=== PATIENT | female | born 1940 | race Caucasian/White ===

== ENCOUNTER 2018-01-03 04:29 | Inpatient (IN) ==
[2018-01-03] MEDS ORDERED: Sod Chloride 0.9% Inj 1,000 ML IV.SIG ONE ×2 (04:40→05:46)
[2018-01-03] MEDS ORDERED: HYDROmorphone PF Inj 0.5 MG/0.5 ML Syringe SQ ONE (04:40)
[2018-01-03] MEDS ORDERED: HYDROmorphone PF Inj 2 MG/ML Vial IV.PUSH ONE ×2 (04:51→05:53)
--- NOTE | 2018-01-03 05:01 | ED ---
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 She denies any fevers, chills, nausea, vomiting or constipation. Her last bowel movement was overnight and was small but normal. She has never had pain like this before. Related Data Home Medications Medication Instructions Recorded Confirmed aspirin 81 mg PO DAILY 01/03/18 01/03/18 atorvastatin 40 mg PO DAILY 01/03/18 01/03/18 bupropion HCl 150 mg PO QAM 01/03/18 01/03/18 fluticasone 1 spray INTRANASAL DAILY 01/03/18 01/03/18 lisinopril-hydrochlorothiazide 1 tab PO DAILY 01/03/18 01/03/18 venlafaxine 75 mg PO DAILY 01/03/18 01/03/18 Allergies Allergy/AdvReac Type Severity Reaction Status Date / Time No Known Allergies Allergy Verified 01/03/18 04:42 Review of Systems ROS: all other systems reviewed are negative [facility] Medical History Medical History Diabetes (Acute) H/O cancer of gall bladder (Acute) High cholesterol (Acute) Hypertension (Acute) Surgical History Surgical History Hx of cholecystectomy (Acute) Social History Social History Substance History: No History of Abuse Second Hand Smoke Exposure: No Smoking Status: Former smoker How Often Do You Have a Drink Containing Alcohol: Monthly or less Recent Travel in [facility] within the Last 8 Weeks: No Recent Out of Country Travel within the Last 8 Weeks: No Immunization History Tetanus Immunization: Unsure Exam Narrative Exam Narrative: GENERAL:Well appearing, no acute distress SKIN: Focused skin assessment warm and dry. HEAD: Atraumatic. Normocephalic. EYES: Pupils equal and round. No injection or drainage. ENT: Moist mucous membranes NECK: Trachea midline. CARDIOVASCULAR: Regular rate and rhythm. No murmur appreciated. RESPIRATORY: Clear to auscultation. Breath sounds equal bilaterally. GASTROINTESTINAL: Abdomen soft, normal bowel sounds, diffusely tender to palpation with guarding in the upper abdomen worse on the right than the left, lower abdomen is nontender MUSCULOSKELETAL: No obvious deformities. NEUROLOGICAL: Awake and alert. No obvious cranial nerve deficits. Moving all extremities. PSYCHIATRIC: Appropriate mood and affect; insight and judgment normal. Course Initial Documented Vital Signs Temperature 98.6 F 01/03/18 04:32 Pulse Rate 76 01/03/18 04:32 Respiratory Rate 17 01/03/18 04:32 Blood Pressure 138/64 01/03/18 04:32 Pulse Oximetry 96 01/03/18 04:32 Last Documented Vital Signs Temperature 98.6 F 01/03/18 04:32 Pulse Rate 85 01/03/18 06:17 Respiratory Rate 16 01/03/18 06:17 Blood Pressure 125/60 01/03/18 06:17 Pulse Oximetry 93 L 01/03/18 06:17 Medical Decision Making [facility] Narrative Medical decision making narrative: This is a 77-year-old female who presents to the emergency department with abdominal pain that started overnight. She is quite tender on exam in the upper abdomen. She was placed on a monitor and an IV was established labs demonstrate a leukocytosis with a neutrophil predominance. Lactic acid is 2.8. Patient has renal insufficiency which is chronic. She was given 2 L of IV fluid and started on Zosyn and cultures were obtained. CT abdomen pelvis was obtained without contrast given CKD and demonstrates inflammation of the small bowel consistent with enteritis. Patient is significantly improved on my reassessment. Infection versus inflammatory versus ischemia continues to be on the differential but given her improved appearance I do not think she requires an emergent surgical evaluation. Labs and exam should be monitored closely and patient will be admitted. Medical Screen Exam Complete: Yes Emergency Medical Condition: Yes Differential Diagnosis Differential Diagnosis: Appendicitis, nephrolithiasis, cancer, infectious gastroenteritis, mesenteric ischemia Lab Data Lab results reviewed: Yes I reviewed the patient's lab results. Lab results narrative: leukocytosis with neutrophil predominance renal insufficiency similar GFR to 2016 lactic 2.8 Result diagrams: 01/03/18 04:55 01/03/18 04:55 Lab Results 01/03/18 01/03/18 01/03/18 Range/Units 04:55 04:55 04:55 WBC 15.4 H (4.0-11.0) th/mm3 RBC 3.78 L (4.00-5.30) mil/mm3 Hgb 11.9 (11.6-15.3) gm/dL Hct 35.6 (35.0-46.0) % MCV 94.3 (80.0-100.0) fL MCH 31.6 (27.0-34.0) pg MCHC 33.5 (32.0-36.0) % RDW 12.8 (11.6-17.2) % Plt Count 215 (150-450) th/mm3 MPV 6.9 L (7.0-11.0) fL Neut % (Auto) 90.1 H (16.0-70.0) % Lymph % (Auto) 6.3 L (9.0-44.0) % [place] % (Auto) 3.2 (0.0-8.0) % Eos % (Auto) 0.1 (0.0-4.0) % Baso % (Auto) 0.3 (0.0-2.0) % Neut # (Auto) 13.9 H (1.8-7.7) th/mm3 Lymph # (Auto) 1.0 (1.0-4.8) th/mm3 [place] # (Auto) 0.5 (0.0-0.9) th/mm3 Eos # (Auto) 0.0 (0.0-0.4) th/mm3 Baso # (Auto) 0.1 (0.0-0.2) th/mm3 WBC Differential . Differential Comment Auto diff final Sodium 142 (136-145) meq/L Potassium 4.1 (3.5-5.1) meq/L Chloride 107 (98-107) meq/L Carbon Dioxide 27.6 (21.0-32.0) meq/L Anion Gap 7 (5-15) meq/L BUN 31 H (7-18) mg/dL Creatinine 1.56 H (0.50-1.00) mg/dL Estimated GFR 32 L (>89) mL/min Random Glucose 147 H (74-106) mg/dL Lactic Acid 2.8 H (0.4-2.0) mmol/L Calcium 8.8 (8.5-10.1) mg/dL Total Bilirubin 0.3 (0.2-1.0) mg/dL AST 23 (15-37) U/L ALT 20 (10-53) U/L Alkaline Phosphatase 112 (45-117) U/L Total Protein 6.7 (6.4-8.2) g/dL Albumin 3.5 (3.4-5.0) g/dL Lipase 113 (73-393) U/L Imaging Data Attestation: I personally reviewed and interpreted this imaging study as follows : Radiologist's impression: Abdomen/Pelvis CT 01/03/18 04:40 CONCLUSION: 1. Abnormal mural thickening and inflammatory or edematous changes of several loops of small bowel in the right lower quadrant. Findings are characteristic of enteritis. Differential diagnosis includes infectious, inflammatory bowel disease or ischemic change. There is a small amount of free fluid in the pelvis. 2. Prior cholecystectomy. Small fat-containing umbilical hernia. Discharge Plan Physicians Team ED Provider: Vianey Chaney Primary Care Provider: Zackery Edwards Rxs /Orders / Referrals /Forms Prescriptions: No Action atorvastatin 40 mg Tablet 40 mg PO DAILY RF: 0 venlafaxine 75 mg Capsule,Extended Release 24hr 75 mg PO DAILY RF: 0 aspirin 81 mg Tablet,Delayed Release (Dr/Ec) 81 mg PO DAILY RF: 0 lisinopril-hydrochlorothiazide 10-12.5 mg Tablet 1 tab PO DAILY RF: 0 fluticasone 50 mcg/actuation [place],Suspension 1 spray INTRANASAL DAILY RF: 0 bupropion HCl 150 mg Tablet Extended Release 24 Hr 150 mg PO QAM RF: 0 Status ED Status: With Doctor
[2018-01-03 05:08] LABS: Baso # (Auto) 0.1 th/mm3 (0.0-0.2); Baso % (Auto) 0.3 % (0.0-2.0); Eos % (Auto) 0.1 % (0.0-4.0); Hematocrit 35.6 % (35.0-46.0); Hemoglobin 11.9 gm/dL (11.6-15.3); Lymph % (Auto) 6.3 % (9.0-44.0); Mean Corpuscular HGB Conc 33.5 % (32.0-36.0); Mean Corpuscular Hemoglobin 31.6 pg (27.0-34.0); Mean Corpuscular Volume 94.3 fL (80.0-100.0); Mean Platelet Volume 6.9 fL (7.0-11.0); Mono # (Auto) 0.5 th/mm3 (0.0-0.9); Mono % (Auto) 3.2 % (0.0-8.0); Neut # (Auto) 13.9 th/mm3 (1.8-7.7); Neut % (Auto) 90.1 % (16.0-70.0); Platelet Count 215 th/mm3 (150-450); Red Blood Count 3.78 mil/mm3 (4.00-5.30); Red Cell Distribution Width 12.8 % (11.6-17.2); White Blood Count 15.4 th/mm3 (4.0-11.0)
[2018-01-03 05:27] LABS: Albumin 3.5 g/dL (3.4-5.0); Anion Gap 7 meq/L (5-15); Aspartate Aminotransferase 23 U/L (15-37); Blood Urea Nitrogen 31 mg/dL (7-18); Calcium 8.8 mg/dL (8.5-10.1); Carbon Dioxide 27.6 meq/L (21.0-32.0); Chloride 107 meq/L (98-107); Glomerular Filtration Rate 32 mL/min (>89); Glucose,Random 147 mg/dL (74-106); Lipase 113 U/L (73-393); Potassium 4.1 meq/L (3.5-5.1); Sodium 142 meq/L (136-145)
[2018-01-03 05:28] LABS: Alanine Aminotransferase 20 U/L (10-53)
[2018-01-03 05:30] LABS: Alkaline Phosphatase 112 U/L (45-117); Total Protein 6.7 g/dL (6.4-8.2)
[2018-01-03] MEDS ORDERED: Piperacil/Tazo 3.375 GM Premix 50 ML IV.SIG ONE (05:45)
--- NOTE | 2018-01-03 06:38 | CT ---
EXAM DATE: 01/03/2018 4:40 AM EDT AGE/SEX: 77 years / Female INDICATIONS: Right upper quadrant pain and elevated white count. CLINICAL DATA: This is the patient's initial encounter. Patient reports that signs and symptoms have been present for 1 day and indicates a pain score of 8/10. MEDICAL/SURGICAL HISTORY: Hypertension. Diabetes. Carcinoma of gallbladder Cholecystectomy. L iver resection RADIATION DOSE: 25.9 CTDI (mGy) COMPARISON: POI, CT ABDOMEN AND PELVIS W/O CONTRAST, 02/20/2016. . TECHNIQUE: Multiple contiguous axial images were obtained through the abdomen. Images were obtained using multiple row detector helical technique. Using automated exposure control and adjustment of the mA and/or kV according to patient size, radiation dose was kept as low as reasonably achievable to o btain optimal diagnostic quality images. DICOM format image data is available electronically for rev iew and comparison. FINDINGS: Lung bases are clear. No acute findings in the liver, spleen, adrenals, kidneys or pancreas. Exophyti c cyst lower pole left kidney is stable. Previous cholecystectomy. There is mural thickening of several loops of small bowel in the right lower quadrant with surroundin g inflammatory or edematous changes in the mesentery. Findings most characteristic of an enteritis. There is a small fat-containing umbilical hernia. Small amount of free fluid present in pelvis. No fr ee air. CONCLUSION: 1. Abnormal mural thickening and inflammatory or edematous changes of several loops of small bowel i n the right lower quadrant. Findings are characteristic of enteritis. Differential diagnosis includes infectious, inflammatory bowel disease or ischemic change. There is a small amount of free fluid in the pelvis. 2. Prior cholecystectomy. Small fat-containing umbilical hernia. Electronically signed by: Trung Giang MD 01/03/2018 6:37 AM EDT
[2018-01-03] MEDS ORDERED: Sodium Chloride 0.9% 2 ML Flush PRN IV.FLUSH (10:05)
--- NOTE | 2018-01-03 10:49 | P.HPIM ---
History of Present Illness Service: Hospitalist Primary Care Physician: Zackery Edwards MD, PhD Chief Complaint: abdominal pain History of Present Illness: Patient is a pleasant 77-year-old female with history of hypertension, type 2 diabetes, and adenocarcinoma of the gallbladder. Gallbladder was resected by Dr. Zak Padilla in 2010. Patient was in her normal state of good health until approximately 1-2 days prior to presentation. Patient developed abdominal pain. Patient's appetite diminished. Patient has had nothing solid by mouth for the last 24 hours, but she is continued to drink liquids. Patient describes the pain as severe. Patient denies nausea or vomiting. Patient denies diarrhea or constipation. Patient states that she had a small bowel movement yesterday. Patient denies bright red blood per rectum or dark tarry stools. Patient denies prior episodes of same type of abdominal pain. 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 Osito Kruse - cholecystectomy by Dr. Zak Padilla -Resection of the liver at the gallbladder bed was performed August 2010 -Gallbladder fossa was negative for carcinoma -Patient was recommended to have chemotherapy by oncology, but declined chemotherapy -Patient's sister from complications of poor placement for chemotherapy which makes patient anxious -Patient no longer following with oncology, last seen February 2016 5) hyperlipidemia 6) morbid obesity 7) depression 8) PAD, mild 9) aortic atherosclerosis 10) history of right breast subcutaneous lesion 11) GERD PSH: 1) colonoscopy 05/2010 2) cholecystectomy 3) resection of liver at the gallbladder bed, August 2010. Negative for carcinoma 4) liver biopsy 5) EGD 6) dilation and curettage 7) ERCP with sphincterectomy, stent insertion (?) 8) tonsillectomy and adenoidectomy 1944 9) Bariatric Surgery FHX: Non-contributory SHX: , retired -Former smoker. Patient quit over 15 years ago. However, prior to that she smoked on and off since teenager. -No alcohol use -No illicit street drugs Allergies: No known drug allergies MED: 1) artificial tears 2) aspirin 81 mg p.o. daily 3) Lipitor 40 mg p.o. every afternoon 4) bupropion XL 150 mg p.o. daily ---> still taking? 5) Flonase 1 spray in each nostril twice a day 6) ibuprofen as needed 7) lisinopril/hydrochlorothiazide 10/12.5 mg 1 tablet daily 8 multivitamin 1 tablet daily 9) naproxen 250 mg as needed 10) Effexor ER 75 mg 1 tablet daily --> still taking ? 11) vitamin D 1000 units 2 tablets daily - Diagnosis (1) Abdominal pain, RUQ (2) DM2 (diabetes mellitus, type 2) (3) HTN (hypertension) (4) Depression Inpatient Certification: I certify that the inpatient services were ordered in accordance with Medicare regulations governing the order. This includes certification that hospital inpatient services are reasonable and necessary and in the case of services not specified as inpatient-only under 42 CFR 419.22(n), that they are appropriately provided as inpatient services in accordance to with the 2-midnight benchmark under 43 CFR 412.3(e) Estimated Total Length of Stay (Days): 3 Plans for Post Hospital Care: Not yet determined Review of Systems Constitutional: Denies anorexia, Denies body ache(s), Denies chills, Denies fever(s), Denies night sweats, Denies poor appetite, Denies weight gain, Denies weight loss Eyes: Denies blind spots, Denies blurry vision, Denies change in vision, Denies double vision, Denies discharge, Denies loss of peripheral vision, Denies loss of vision, Denies other visual disturbances, Denies pain Ears, Nose, Mouth, and Throat: Denies bleeding gums, Denies difficulty swallowing, Denies dizziness, Denies headache(s), Denies hearing loss, Denies pain with swallowing, Denies poor balance, Denies ringing in the ears, Denies sore throat, Denies throat swelling, Denies tongue swelling Cardiovascular: Denies chest pain, Denies excessive sweating, Denies fainting, Denies fast heart rate, Denies generalized swelling, Denies irregular heart rhythm, Denies leg swelling, Denies lightheadedness, Denies slow heart rate Respiratory: Denies cough, Denies shortness of breath, Denies snoring, Denies wheezing Gastrointestinal: Reports abdominal pain, Denies belching, Denies black, tarry stools, Denies bright, red blood in stools, Denies change in bowel habits, Denies change in stools, Denies coffee ground vomit, Denies constipation, Denies cramping, Denies difficulty swallowing, Denies heartburn, Denies incontinent of stools, Denies loose stools, Denies nausea, Denies pain with swallowing, Denies vomiting, Denies vomiting blood Comments: see HPI Genitourinary: Denies abnormal vaginal bleeding, Denies blood in urine, Denies difficulty starting urination, Denies difficulty urinating, Denies frequent nighttime urination, Denies painful urination, Denies pelvic pain, Denies side pain, Denies urinary incontinence, Denies urinary hesitancy, Denies urinary urgency Musculoskeletal: Denies abnormal walking, Denies back pain, Denies body aches, Denies decreased muscle mass, Denies joint pain, Denies joint swelling, Denies muscle weakness, Denies neck pain, Denies numbness, Denies stiffness, Denies tingling Skin/Breast: Denies bleeding lesions, Denies change in skin color, Denies changing lesions, Denies itching, Denies lesions, Denies new lesions, Denies non -healing lesions, Denies redness, Denies sensitivity to light, Denies rash, Denies skin pain, Denies skin swelling, Denies skin ulcer, Denies sores, Denies unusual bruising, Denies wounds, Denies yellowing of the skin Neurologic: Denies abnormal hearing, Denies abnormal movements, Denies abnormal speech, Denies abnormal walking, Denies behavioral changes, Denies burning sensations, Denies confusion, Denies dizziness, Denies fainting, Denies frequent falls, Denies headache(s), Denies lack of coordination, Denies localized weakness, Denies loss of vision, Denies memory loss, Denies numbness, Denies other visual disturbances, Denies radiating pain, Denies restless legs, Denies convulsions, Denies seizure-like activity, Denies sensory deficit, Denies tingling/numbness/burning sensations, Denies tremor(s), Denies unsteadiness, Denies weakness Psychiatric: Denies abnormal sleep pattern, Denies anxiety, Denies behavioral changes, Denies change in appetite, Denies confusion, Denies depression, Denies difficulty concentrating, Denies hearing things others do not hear, Denies irritability, Denies lack of enjoyment, Denies memory loss, Denies mood swings, Denies panic attacks, Denies paranoia, Denies seeing things others do not see, Denies thoughts of hurting/killing others, Denies thoughts of hurting/killing yourself Endocrine: Denies cold intolerance, Denies excessive sweating, Denies fatigue, Denies flushing, Denies heat intolerance, Denies increased hunger, Denies increased thirst, Denies increased urination, Denies rapid, pounding, or irregular heartbeat Hematologic/Lymphatic: Denies easy bleeding, Denies easy bruising, Denies enlarged lymph nodes Allergic/Immunologic: Denies hives, Denies lip swelling, Denies throat swelling , Denies wheezing PMFSH - History History Provided By: Patient - Medical History Medical History: Medical History (Last Reviewed 01/08/18 @ 08:22 by Audi Wei) Diabetes H/O cancer of gall bladder High cholesterol Hypertension - Surgical History Surgical History: Surgical History (Last Reviewed 01/08/18 @ 08:23 by Audi Wei) Hx of cholecystectomy - Tobacco History Second Hand Smoke Exposure: No Tobacco Use In Past 30 Days: No Smoking Status: Former smoker - Alcohol History How Often Do You Have a Drink Containing Alcohol: Monthly or less - Substance Use History Substance History: No History of Abuse - Travel History Recent Travel in the [place] Within the Last 8 Weeks: No Recent Travel Out of the Country Within the Last 8 Weeks: No - Immunization History Tetanus Immunization: Unsure Medications and Allergies Active Medications: Active Medications Al Hydroxide/Mg Hydroxide (Milk Of Magnvalerie Liq) 30 ml PO Q12H PRN PRN Reason: Mild Constipation Sodium Chloride (Ns Inj) 1,000 mls @ 100 mls/hr IV.CONT .Q10H LORET[place] Piperacillin/Tazobactam/Dextrose (Zosyn 3.375 Gm Premix) 50 mls @ 100 mls/hr IV.SIG Q6H [place] Ondansetron HCl (Zofran Inj) 4 mg IV.PUSH Q6H PRN PRN Reason: NAUSEA OR VOMITING Senna/Docusate Sodium (Treva-Colace) 1 tab PO BID [place] Sodium Chloride (Ns Flush) 2 ml IV.FLUSH BID [place] Sodium Chloride (Ns Flush) 2 ml IV.FLUSH PRN PRN PRN Reason: FLUSH AFTER USING IV ACCESS Allergies Allergy/AdvReac Type Severity Reaction Status Date / Time No Known Allergies Allergy Verified 01/03/18 04:42 Home Medications Medication Instructions Recorded Confirmed Type aspirin 81 mg PO DAILY 01/03/18 01/03/18 History atorvastatin 40 mg PO DAILY 01/03/18 01/03/18 History bupropion HCl 150 mg PO QAM 01/03/18 01/03/18 History fluticasone 1 spray INTRANASAL DAILY 01/03/18 01/03/18 History lisinopril-hydrochlorothiazide 1 tab PO DAILY 01/03/18 01/03/18 History venlafaxine 75 mg PO DAILY 01/03/18 01/03/18 History Exam Vital signs: 01/03/18 06:59 01/03/18 10:15 Temperature Pulse Rate 104 H Respiratory Rate 14 16 Blood Pressure 135/63 Pulse Oximetry 94 L Narrative: GENERAL: This is a well-nourished, well-developed patient, in no apparent distress. CARDIOVASCULAR: Regular rate and rhythm without murmurs, gallops, or rubs. RESPIRATORY: Clear to auscultation. Breath sounds equal bilaterally. No wheezes , rales, or rhonchi. GASTROINTESTINAL: +BS x 4, no g/r/r, pt is diffusely tender on palpation, pt is most tender at RUQ MUSCULOSKELETAL: Extremities without clubbing, cyanosis, or edema. NEURO: Alert & Oriented x4 to person, place, time, situation. Moves all ext x4 Results - Labs CBC & Chem 7: 01/08/18 08:36 01/06/18 05:19 Labs: Liver Function 01/03/18 Range/Units 04:55 Total Bilirubin 0.3 (0.2-1.0) mg/dL AST 23 (15-37) U/L ALT 20 (10-53) U/L Alkaline Phosphatase 112 (45-117) U/L Albumin 3.5 (3.4-5.0) g/dL - Imaging Abdomen/Pelvis CT 01/03/18 04:40 1. Abnormal mural thickening and inflammatory or edematous changes of several loops of small bowel in the right lower quadrant. Findings are characteristic of enteritis. Differential diagnosis includes infectious, inflammatory bowel disease or ischemic change. There is a small amount of free fluid in the pelvis. 2. Prior cholecystectomy. Small fat-containing umbilical hernia. Caprini VTE Risk Assessment Caprini VTE Risk Assessment: Moderate/High Risk (score >= 2) Caprini Risk Assessment Model: Point Value = 1 Point Value = 2 Point Value = 3 Point Value = 5 Age 41-60 Minor surgery BMI > 25 kg/m2 Swollen legs Varicose veins or History of unexplained or recurrent spontaneous Oral contraceptives or hormone replacement Sepsis (< 1 month) Serious lung disease, including pneumonia (< 1 month) Abnormal pulmonary function Acute myocardial infarction Congestive heart failure (< 1 month) History of inflammatory bowel disease Medical patient at bed rest Age 61-74 Arthroscopic surgery Major open surgery (> 45 min) Laparoscopic surgery (> 45 min) Malignancy Confined to bed (> 72 hours) Immobilizing plaster cast Central venous access Age >= 75 History of VTE Family history of VTE Factor V Leiden Prothrombin [id number] Lupus anticoagulant Anticardiolipin antibodies Elevated serum homocysteine Heparin-induced thrombocytopenia Other congenital or acquired thrombophilia Stroke (< 1 month) Elective arthroplasty Hip, pelvis, or leg fracture Acute spinal cord injury (< 1 month) Prophylaxis Regimen: Total Risk Factor Score Risk Level Prophylaxis Regimen 0-1 Low Early ambulation 2 Moderate Order ONE of the following: *Sequential Compression Device (SCD) *Heparin 5000 units SQ BID 3-4 Higher Order ONE of the following medications: *Heparin 5000 units SQ TID *Enoxaparin/Lovenox 40 mg SQ daily (WT < 150 kg, CrCl > 30 mL/min) *Enoxaparin/Lovenox 30 mg SQ daily (WT < 150 kg, CrCl > 10-29 mL/min) *Enoxaparin/Lovenox 30 mg SQ BID (WT < 150 kg, CrCl > 30 mL/min) AND/OR *Sequential Compression Device (SCD) 5 or more Highest Order ONE of the following medications: *Heparin 5000 units SQ TID (Preferred with Epidurals) *Enoxaparin/Lovenox 40 mg SQ daily (WT < 150 kg, CrCl > 30 mL/min) *Enoxaparin/Lovenox 30 mg SQ daily (WT < 150 kg, CrCl > 10-29 mL/min) *Enoxaparin/Lovenox 30 mg SQ BID (WT < 150 kg, CrCl > 30 mL/min) AND *Sequential Compression Device (SCD) Assessment and Plan - Assessment (1) Abdominal pain, RUQ Code(s): R10.11 - Right upper quadrant pain Status: Acute Plan: Patient is a pleasant 77-year-old female with history of hypertension, type 2 diabetes, and adenocarcinoma of the gallbladder. 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 Osito Kruse - cholecystectomy by Dr. Zak Padilla - Resection of the liver at the gallbladder bed was performed August 2010 - Gallbladder fossa was negative for carcinoma - Patient was recommended to have chemotherapy by oncology, but declined chemotherapy - Patient's sister from complications of poor placement for chemotherapy which makes patient anxious - Patient no longer following with oncology, last seen February 2016 Patient was in her normal state of good health until approximately 1-2 days prior to presentation. Patient developed abdominal pain. Patient's appetite diminished. Patient has had nothing solid by mouth for the last 24 hours, but she is continued to drink liquids. Patient describes the pain as severe. Patient denies nausea or vomiting. Patient denies diarrhea or constipation. Patient states that she had a small bowel movement yesterday. Patient denies bright red blood per rectum or dark tarry stools. Patient denies prior episodes of same type of abdominal pain. Abdomen/Pelvis CT 01/03/18 04:40 1. Abnormal mural thickening and inflammatory or edematous changes of several loops of small bowel in the right lower quadrant. Findings are characteristic of enteritis. Differential diagnosis includes infectious, inflammatory bowel disease or ischemic change. There is a small amount of free fluid in the pelvis. 2. Prior cholecystectomy. Small fat-containing umbilical hernia. - WBC 15.4 (01/03) - lactic acid 2.8, 2.7 (01/03) - no fever - IVFs - continue zosyn (01/03 - present) - Pt with marked abdominal pain. - STAT consult placed to General Surgery. Case d/w Dr. Rodriges - joey thomas. HTN - continue home medications Depression - continue home medications. (2) DM2 (diabetes mellitus, type 2) Code(s): E11.9 - Type 2 diabetes mellitus without complications Status: Acute (3) HTN (hypertension) Code(s): I10 - Essential (primary) hypertension Status: Acute (4) Depression Code(s): F32.9 - Major depressive disorder, single episode, unspecified Status : Acute
[2018-01-03] MEDS ORDERED: Dextrose 50% in Water 50 ML Vial IV.PUSH PRN (11:40)
[2018-01-03] MEDS ORDERED: Acetaminophen 500 MG Tablet PO PRN (12:00)
--- NOTE | 2018-01-03 12:30 | XR ---
EXAM DATE: 01/03/2018 12:00 PM EDT AGE/SEX: 77 years / Female INDICATIONS: Patient presents with fever and shortness of breath. CLINICAL DATA: This is the patient's initial encounter. Patient reports that signs and symptoms have been present for 1 day and indicates a pain score of 0/10. MEDICAL/SURGICAL HISTORY: . Hypertension. Diabetes. Carcinoma of gallbladder Cholecystectomy. Liver resection . COMPARISON: No prior exams available for comparison. FINDINGS: A single AP view of the chest demonstrates the lungs to be symmetrically aerated without evidence of mass, infiltrate or effusion. The cardiomediastinal contours are unremarkable. Osseous structures a re intact. CONCLUSION: 1. No acute cardiopulmonary disease. Electronically signed by: Indra Lind MD 01/03/2018 12:28 PM EDT
--- NOTE | 2018-01-03 13:00 | P.CONGS ---
[facility] Gen Surgery Consult Note Consult date: 01/03/18 Narrative: 77 yo F h/o gallbladder ca s/p limited liver resection in 2010 developed acute onset right lower abdominal pain last night 6 pm, which persisted and worsened. No diarrhea, nausea, or vomiting. She feels somewhat improved after pain meds. Had 2L bolus IVF in ED. WBC noted to be [address] a/p shows thickened distal small bowel. Images were reviewed by me and discussed with radiology- appears to be pneumatosis of a portion of small bowel with inflammatory changes in mesentery. No IV contrast was given due to borderline renal function. Review of Systems All other systems reviewed negative except as stated in [facility] - History History Provided By: Patient - Medical History Medical History: Medical History (Last Reviewed 01/03/18 @ 05:03 by Vianey Chaney MD) Diabetes H/O cancer of gall bladder High cholesterol Hypertension - Surgical History Surgical History: Surgical History (Last Updated 01/03/18 @ 05:04 by Vianey Chaney MD) Hx of cholecystectomy - Tobacco History Second Hand Smoke Exposure: No Tobacco Use In Past 30 Days: No Smoking Status: Former smoker - Alcohol History How Often Do You Have a Drink Containing Alcohol: Monthly or less - Substance Use History Substance History: No History of Abuse - Travel History Recent Travel in the [place] Within the Last 8 Weeks: No Recent Travel Out of the Country Within the Last 8 Weeks: No - Immunization History Tetanus Immunization: Unsure Medications and Allergies Active Medications: Active Medications Acetaminophen (Tylenol) 500 mg PO Q6H PRN PRN Reason: FEVER > 100.4 F Al Hydroxide/Mg Hydroxide (Milk Of Magnvalerie Liq) 30 ml PO Q12H PRN PRN Reason: Mild Constipation Aspirin (Ecotrin) 81 mg PO DAILY [facility] Atorvastatin Calcium (Lipitor) 40 mg PO DAILY [facility] Bupropion HCl (Wellbutrin Sr) 150 mg PO DAILY [facility] Dextrose (D50w Vial) 50 ml IV.PUSH UNSCH PRN PRN Reason: PER HYPOGLYCEMIA PROTOCOL Enalaprilat (Vasotec Inj) 1.25 mg IV.PUSH Q6H PRN PRN Reason: sbp above 160 Fluticasone Propionate (Flonase Nasal [place]) 1 spray EACH NARE DAILY [facility] Glucagon (Glucagon Inj) 1 mg OTHER PRN PRN PRN Reason: for Hypoglycemia Protocol Hydrochlorothiazide (Hydrodiuril) 12.5 mg PO DAILY [facility] Sodium Chloride (Ns Inj) 1,000 mls @ 100 mls/hr IV.CONT .Q10H [facility] Piperacillin/Tazobactam/Dextrose (Zosyn 3.375 Gm Premix) 50 mls @ 100 mls/hr IV.SIG Q6H [facility] Insulin Human Regular (Novolin R Correctional Sugar Inj) 0 units SQ ACHS [facility]; Protocol Lisinopril (Prinivil) 10 mg PO DAILY [facility] Miscellaneous (Pill Splitter) 1 each OTHER UNSCH PRN PRN Reason: SEE LABEL COMMENTS Ondansetron HCl (Zofran Inj) 4 mg IV.PUSH Q6H PRN PRN Reason: NAUSEA OR VOMITING Senna/Docusate Sodium (Treva-Colace) 1 tab PO BID [facility] Sodium Chloride (Ns Flush) 2 ml IV.FLUSH BID [facility] Sodium Chloride (Ns Flush) 2 ml IV.FLUSH PRN PRN PRN Reason: FLUSH AFTER USING IV ACCESS Venlafaxine HCl (Effexor Xr) 75 mg PO DAILY [facility] Allergies Allergy/AdvReac Type Severity Reaction Status Date / Time No Known Allergies Allergy Verified 01/03/18 04:42 Home Medications Medication Instructions Recorded Confirmed Type aspirin 81 mg PO DAILY 01/03/18 01/03/18 History atorvastatin 40 mg PO DAILY 01/03/18 01/03/18 History bupropion HCl 150 mg PO QAM 01/03/18 01/03/18 History fluticasone 1 spray INTRANASAL DAILY 01/03/18 01/03/18 History lisinopril-hydrochlorothiazide 1 tab PO DAILY 01/03/18 01/03/18 History venlafaxine 75 mg PO DAILY 01/03/18 01/03/18 History Exam Vital signs: Vital Signs 01/03/18 04:32 01/03/18 06:01 01/03/18 06:17 Temperature 98.6 F Pulse Rate 76 85 Respiratory Rate 17 17 16 Blood Pressure 138/64 125/60 Pulse Oximetry 96 93 L 01/03/18 06:59 01/03/18 10:15 Temperature Pulse Rate 104 H Respiratory Rate 14 16 Blood Pressure 135/63 Pulse Oximetry 94 L Intake & Output 01/02/18 01/03/18 01/03/18 18:59 06:59 18:59 Intake Total 1050 / 1050 1000 / 1000 Balance 1050 / 1050 1000 / 1000 Weight 124.738 kg Intake: IV 1050 / 1050 1000 / 1000 Zosyn 3.375 GM Premix 50 ML @ 50 / 50 100 mls/hr IV.SIG ONCE ONE Rx#: [id number] NS Inj 1,000 ML @ Wide Open IV. 1000 / 1000 1000 / 1000 SIG BOLUS ONE Rx#:[id number] Other: Date of Last Bowel Movement 01/03/18 Narrative: GENERAL: Awake and alert. No acute distress. Cooperative. HEAD: Normocephalic. Atraumatic. EYES: Pupils equal round and reactive to light bilaterally. No scleral icterus. ENT: Moist oral mucosa. NECK: Trachea midline. CHEST: Nonlabored breathing. No respiratory distress. CARDIOVASCULAR: Regular rate and rhythm. ABDOMEN: Obese. Moderate diffuse ttp. ? rebound in right lower abdomen. EXTREMITIES: No cyanosis or edema. SKIN: Warm, dry, nonjaundiced. Results - Labs 01/03/18 04:55 01/03/18 04:55 Laboratory Results - last 24 hr 01/03/18 01/03/18 01/03/18 04:55 04:55 04:55 WBC 15.4 H RBC 3.78 L Hgb 11.9 Hct 35.6 MCV 94.3 MCH 31.6 MCHC 33.5 RDW 12.8 Plt Count 215 MPV 6.9 L Neut % (Auto) 90.1 H Lymph % (Auto) 6.3 L [place] % (Auto) 3.2 Eos % (Auto) 0.1 Baso % (Auto) 0.3 Neut # (Auto) 13.9 H Lymph # (Auto) 1.0 [place] # (Auto) 0.5 Eos # (Auto) 0.0 Baso # (Auto) 0.1 WBC Differential . Differential Comment Auto diff final Sodium 142 Potassium 4.1 Chloride 107 Carbon Dioxide 27.6 Anion Gap 7 BUN 31 H Creatinine 1.56 H Estimated GFR 32 L Random Glucose 147 H Lactic Acid 2.8 H Calcium 8.8 Total Bilirubin 0.3 AST 23 ALT 20 Alkaline Phosphatase 112 Total Protein 6.7 Albumin 3.5 Lipase 113 01/03/18 07:12 WBC RBC Hgb Hct MCV MCH MCHC RDW Plt Count MPV Neut % (Auto) Lymph % (Auto) [place] % (Auto) Eos % (Auto) Baso % (Auto) Neut # (Auto) Lymph # (Auto) [place] # (Auto) Eos # (Auto) Baso # (Auto) WBC Differential Differential Comment Sodium Potassium Chloride Carbon Dioxide Anion Gap BUN Creatinine Estimated GFR Random Glucose Lactic Acid 2.7 H Calcium Total Bilirubin AST ALT Alkaline Phosphatase Total Protein Albumin Lipase - Imaging Imaging: ITS Impressions Abdomen/Pelvis CT 01/03/18 04:40 CONCLUSION: 1. Abnormal mural thickening and inflammatory or edematous changes of several loops of small bowel in the right lower quadrant. Findings are characteristic of enteritis. Differential diagnosis includes infectious, inflammatory bowel disease or ischemic change. There is a small amount of free fluid in the pelvis. 2. Prior cholecystectomy. Small fat-containing umbilical hernia. Chest X-Ray 01/03/18 12:00 CONCLUSION: 1. No acute cardiopulmonary disease. CT scan - abdomen: report reviewed, image reviewed CT scan - pelvis: report reviewed, image reviewed Assessment and Plan - Assessment (1) Abdominal pain Code(s): R10.9 - Unspecified abdominal pain Status: Acute (2) Pneumatosis intestinalis Code(s): K63.89 - Other specified diseases of intestine Status: Acute - Plan 77-year-old female with acute onset right-sided abdominal pain with severe tenderness, leukocytosis, CT concerning for enteritis vs ischemic bowel. Will order CT a/p despite borderline renal function as we need to make an operative decision and this may help to see if she is perfusing her bowel. She received two boluses in ED earlier today so will continue maintenance IV only at this time.
[2018-01-03] MEDS: buPROPion 150 MG 12 HR Tablet PO SCH (13:07)
[2018-01-03] MEDS: Piperacil/Tazo 3.375 GM Premix 50 ML IV.SIG SCH ×3 (13:57→20:00)
[2018-01-03] MEDS: Sod Chloride 0.9% Inj 1,000 ML IV.CONT SCH ×2 (13:57→20:01)
[2018-01-03] MEDS: Insulin NovoLIN Regular Correctional Sugar Inj SQ SCH ×3 (13:58→21:03)
--- NOTE | 2018-01-03 15:07 | CT ---
EXAM DATE: 01/03/2018 1:56 PM EDT AGE/SEX: 77 years / Female INDICATIONS: Bilateral lower abdomen pain. CLINICAL DATA: This is the patient's initial encounter. Patient reports that signs and symptoms have been present for 1 day and indicates a pain score of 7/10. MEDICAL/SURGICAL HISTORY: Diabetes. Hypertension. gallbladder cancer Cholecystectomy. ORAL CONTRAST: No oral contrast ingested. RADIATION DOSE: 29.32 CTDI (mGy) ; Patient body habitus [place] [facility] [place]/03/2018. . TECHNIQUE: Multiple contiguous axial images were obtained through the abdomen and pelvis following b olus infusion of 50 ml Visipaque 320 (iodixanol) nonionic water-soluble contrast as a single exam d ose. No oral contrast ingested. Using automated exposure control and adjustment of the mA and/or kV according to patient size, radiation dose was kept as low as reasonably achievable to obtain optimal diagnostic quality images. DICOM format image data is available electronically for review and compar zoila. FINDINGS: LOWER LUNGS: The visualized lower lungs are clear. LIVER: Diffusely homogeneous density without intrahepatic ductal dilatation or volume loss. Trace am ount of ascites with fluid primarily along the hepatic margin and in the deep pelvis. SPLEEN: Homogeneous density without enlargement. PANCREAS: Grossly unremarkable. KIDNEYS: Kidneys are symmetrical in size without evidence for radiopaque renal calculi or hydronephr osis. 4.4 cm cyst in the inferior pole the left kidney. No significant contour deforming renal abnorm ality. ADRENAL GLANDS: Unremarkable. AORTA: Heather-aneurysmal. BOWEL/MESENTERY: Persistent diffuse pleural thickening and surrounding inflammatory change involving multiple distal ileal loops in the right lower quadrant. No definitive evidence for pneumatosis. No free air. No drainable focal fluid collections. ABDOMINAL WALL: Small fat-containing anterior abdominal wall hernia. BLADDER: Contours are smooth. REPRODUCTIVE: Grossly unremarkable. BONY STRUCTURES: Multilevel advanced degenerative spondylosis of the lumbar spine. CONCLUSION: 1. Persistent inflammatory change and bowel wall thickening involving several distal ileal loops in the right lower quadrant consistent with moderately severe enteritis. There has been interval increas e in trace ascites in the abdomen with no fluid collections or evidence for bowel perforation. No sherine dence for proximal small bowel obstruction at this time. 2. Remainder of exam is unchanged. Electronically signed by: Indra Lind MD 01/03/2018 3:06 PM EDT
[2018-01-03] MEDS ORDERED: Lidocaine PF 1% Inj 5 ML Syringe OTHER ONE (16:41)
[2018-01-03] MEDS ORDERED: Phenylephrine/NS 1000 MCG/10ML Syringe IV.PUSH ONE (16:41)
[2018-01-03] MEDS ORDERED: Bupivacaine/Epinephrine Inj 0.25% 50 ML Vial ONE (16:56)
[2018-01-03] MEDS ORDERED: Sodium Bicarbonate 8.4% Inj 50 MEQ/50 ML Syringe ONE ×2 (17:15→17:17)
[2018-01-03 18:05] LABS: ABG Base Excess -1.5 mmol/L (-2-2); ABG PCO2 41 mmHg (38-42); ABG PO2 153 mmHG (61-120)
[2018-01-03] MEDS ORDERED: Sugammadex Inj 200 MG/2 ML Vial IV.PUSH ONE (19:07)
[2018-01-03] MEDS ORDERED: HYDROmorphone PF Inj 2 MG/ML Vial IV.PUSH PRN (19:20)
--- NOTE | 2018-01-03 19:30 | P.OP ---
- Preoperative Diagnosis (1) Abdominal pain (2) Pneumatosis intestinalis - Postoperative Diagnosis (1) Small bowel ischemia Date of procedure: 01/03/18 Procedure: Diagnostic laparoscopy Exploratory laparotomy, small bowel resection Appendectomy Anesthesia: ROSALES Surgeon: Gianluca Rodriges MD Pizza Chef: Rosemary GALAVIZ Estimated blood loss (mL): 50 IV fluids (mL): 2,700 Urine output (mL): 150 Pathology: other (ileum; appendix) Operation and Findings: Operative findings: The patient had obvious ischemia patchy in the terminal ileum with some thickening of the adjacent small bowel. The remainder of the small bowel was normal-appearing. The cecum was mildly inflamed but viable. There is no obvious cause for the ischemia. There was no obstruction. Procedure in detail: The patient was taken to the operating room and placed in the supine position. General endotracheal anesthesia was induced and the abdomen was prepped and draped in usual sterile fashion. A surgical timeout was performed to verify correct patient procedure and site. Local anesthetic was injected in the skin and subcutaneous tissue in the left upper abdomen and a 5 mm incision made. A 5 mm Optiview trocar with the laparoscope in place was inserted in the abdominal cavity which was insufflated to 15 mmHg which the patient tolerated well. On evaluation there was noted to be some exudate in the right abdomen with associated concerning bowel. 3 more 5 mm ports were placed in the left abdomen to facilitate exploration. The omentum was adherent with exudative material to the small bowel and the omentum was retracted cephalad. Small bowel loops were stuck and these were gently bluntly. The very distal terminal ileum was possibly viable for about 10 cm and then there was an area approximately 30-40 cm thickened inflamed and with patchy obvious ischemia. The proximal small bowel was normal-appearing. The cecum was mildly thickened but viable as well as the remainder of the colon. It was unclear if she would need an ileocecectomy or small bowel resection alone and therefore I mobilized the acsending colon with the harmonic scalpel. At this point a transverse incision was made in the right upper abdomen sharply and dissection carried through subcutaneous tissue and the right rectus muscle with electrocautery. The involved terminal ileum and cecum was brought up into the incision after placement of an Adin wound retractor. A mesenteric defect was created at healthy small bowel proximal to the diseased bowel. The small bowel was then divided with a 75 mm blue load SAMEER stapler. On closer inspection now that we had opened the very distal terminal ileum was just mildly thickened but viable appearing. Therefore the distal small bowel transection was made in the distal terminal ileum. The mesentery was divided with the harmonic scalpel. A [id number] functional end-to-end anastomosis was performed using the SAMEER 75 mm blue load. The mesentery was closed with 3-0 silk [id number] sutures. 3-0 silk was placed at the end of the staple line. The abdomen was irrigated with 2 L of warm normal saline. The anastomosis was placed back in the abdominal cavity. NG tube was placed and confirmed in the stomach. The anterior and posterior rectus fascia was then closed in 2 layers with #1 PDS suture. The wound was irrigated and skin closed with wide skin stapler. The port sites were closed with wide skin stapler. A elena dressing was placed the right upper quadrant incision.
[2018-01-03] MEDS ORDERED: fentaNYL Citrate Inj 100 MCG/2 ML Ampul ONE ×2 (20:00)
[2018-01-03] MEDS ORDERED: Morphine Inj 4 MG/ML Vial ONE (20:01)
--- NOTE | 2018-01-03 20:18 | XR ---
EXAM DATE: 01/03/2018 12:00 AM EDT AGE/SEX: 77 years / Female INDICATIONS: Shortness of breath. CLINICAL DATA: This is the patient's subsequent encounter. Patient reports that signs and symptoms h ave been present for 2 days and indicates a pain score of Nonresponsive. MEDICAL/SURGICAL HISTORY: . Diabetes. Hypertension. gallbladder cancer Cholecystectomy. [place] [facility] [place]. . FINDINGS: Single AP view the chest. Nasogastric tube is in place the tip below the [id number] of the radiogr aph. Lung volumes are low. Mild patchy opacity bilaterally at the lung bases. No evidence of pleural effusion or pneumothorax. Cardiomediastinal silhouette unchanged. CONCLUSION: 1. Nasogastric tube in place with tip below the [id number] of the radiograph. 2. Mild patchy bilateral lower lung zone opacity indicating atelectasis versus mild consolidation. Electronically signed by: Elvis Stiles MD 01/03/2018 8:16 PM EDT
[2018-01-03] MEDS: Sodium Chloride 0.9% 2 ML Flush BID IV.FLUSH SCH (21:03)
[2018-01-03] MEDS: Senna/Docusate Sodium 8.6/50 MG Tablet PO SCH (21:03)
[2018-01-04] MEDS: Piperacil/Tazo 3.375 GM Premix 50 ML IV.SIG SCH ×5 (01:02→23:57)
[2018-01-04 05:40] LABS: Baso % (Auto) 0.1 % (0.0-2.0); Hematocrit 32.2 % (35.0-46.0); Hemoglobin 10.6 gm/dL (11.6-15.3); Lymph # (Auto) 0.5 th/mm3 (1.0-4.8); Lymph % (Auto) 1.9 % (9.0-44.0); Mean Corpuscular HGB Conc 33.1 % (32.0-36.0); Mean Corpuscular Hemoglobin 31.4 pg (27.0-34.0); Mean Corpuscular Volume 94.8 fL (80.0-100.0); Mean Platelet Volume 6.9 fL (7.0-11.0); Mono % (Auto) 3.5 % (0.0-8.0); Neut # (Auto) 26.6 th/mm3 (1.8-7.7); Neut % (Auto) 94.5 % (16.0-70.0); Platelet Count 186 th/mm3 (150-450); Red Cell Distribution Width 13.4 % (11.6-17.2); White Blood Count 28.1 th/mm3 (4.0-11.0)
[2018-01-04 06:11] LABS: Alanine Aminotransferase 19 U/L (10-53); Albumin 2.6 g/dL (3.4-5.0); Alkaline Phosphatase 56 U/L (45-117); Anion Gap 9 meq/L (5-15); Aspartate Aminotransferase 22 U/L (15-37); Blood Urea Nitrogen 42 mg/dL (7-18); Calcium 7.6 mg/dL (8.5-10.1); Chloride 108 meq/L (98-107); Glomerular Filtration Rate 26 mL/min (>89); Glucose,Random 159 mg/dL (74-106); Potassium 3.9 meq/L (3.5-5.1); Sodium 142 meq/L (136-145); Total Protein 5.7 g/dL (6.4-8.2)
[2018-01-04] MEDS: Sod Chloride 0.9% Inj 1,000 ML IV.CONT SCH ×2 (06:41→17:34)
[2018-01-04 07:30] LABS: Lymphocytes 1 % (9-44); Monocytes 2 % (0-8); Platelet Estimate Normal (Normal); Platelet Morphology Normal (Normal); RBC Morphology Normal (Normal)
[2018-01-04] MEDS: Insulin NovoLIN Regular Correctional Sugar Inj SQ SCH ×4 (09:21→21:13)
[2018-01-04] MEDS: hydroCHLOROthiazide 25 MG Tablet PO SCH (10:22)
[2018-01-04] MEDS: Venlafaxine XR 75 MG Capsule PO SCH ×2 (10:22→12:42)
[2018-01-04] MEDS: Lisinopril 10 MG Tablet PO SCH ×2 (10:23→12:46)
[2018-01-04] MEDS: Sodium Chloride 0.9% 2 ML Flush BID IV.FLUSH SCH ×2 (10:23→21:03)
[2018-01-04] MEDS: Senna/Docusate Sodium 8.6/50 MG Tablet PO SCH ×4 (10:23→21:14)
[2018-01-04] MEDS: buPROPion 150 MG 12 HR Tablet PO SCH ×2 (10:24→12:46)
--- NOTE | 2018-01-04 12:16 | P.PNGS ---
Subjective Patient reports: feels better, pain is less, no flatus, afebrile (The patient is anxious to eat, however she understands that for now she is NPO, except for ice chips and popsicles.) Physical Exam Vital signs: Vital Signs 01/03/18 16:00 01/03/18 19:29 01/03/18 19:45 Temperature 98.3 F 98.2 F Pulse Rate 91 H 88 89 Respiratory Rate 22 15 22 Blood Pressure 119/57 L 121/57 L 116/52 L Pulse Oximetry 95 97 98 01/03/18 20:00 01/03/18 20:15 01/03/18 20:30 Temperature 98.6 F Pulse Rate 89 88 87 Respiratory Rate 22 22 19 Blood Pressure 118/56 L 105/53 L Pulse Oximetry 97 97 95 01/03/18 21:00 01/03/18 22:00 01/03/18 22:15 Temperature Pulse Rate 86 89 87 Respiratory Rate 21 18 Blood Pressure 107/56 L 107/58 L Pulse Oximetry 95 94 L 95 01/03/18 23:05 01/04/18 00:00 01/04/18 02:00 Temperature 98.8 F Pulse Rate 89 88 89 Respiratory Rate 18 Blood Pressure 104/59 L Pulse Oximetry 95 01/04/18 04:00 01/04/18 06:00 01/04/18 08:00 Temperature 98.3 F 98.3 F Pulse Rate 93 H 84 84 Respiratory Rate 22 25 H Blood Pressure 104/55 L 111/55 L Pulse Oximetry 97 99 01/04/18 10:00 Temperature Pulse Rate 86 Respiratory Rate Blood Pressure Pulse Oximetry Intake & Output 01/03/18 01/04/18 01/04/18 18:59 06:59 18:59 Intake Total 1150 / 1150 5150 / 5150 150 / 150 Output Total 770 / 770 Balance 1150 / 1150 4380 / 4380 150 / 150 Weight 132.5 kg Intake: IV 1150 / 1150 2450 / 2450 150 / 150 NS Inj 1,000 ML @ 100 mls/hr IV 1999 .CONT .Q10H [facility] Rx#:[id number] Ofirmev Inj 1,000 mg In 100 ml 200 / 200 100 / 100 @ 400 mls/hr IV.SIG Q6H [facility] Rx# :[id number] Zosyn 3.375 GM Premix 50 ML @ 50 / 50 50 / 50 50 / 50 100 mls/hr IV.SIG Q6H [facility] Rx#: [id number] NS Inj 1,000 ML @ Wide Open IV. 1000 / 1000 SIG BOLUS ONE Rx#:[id number] Flagyl 500 MG Inj 100 ML @ 100 100 / 100 200 / 200 mls/hr IV.SIG Q6H [facility] Rx#: [id number] Anesthesia Amount 2700 / 2700 Output: Estimated Blood Loss 50 / 50 Urine Amount (Catheter) 620 / 620 16fr 620 / 620 Gastric Drainage 100 / 100 Left Nare Nasogastric Tube 100 / 100 Other: Date of Last Bowel Movement 01/03/18 01/03/18 01/03/18 Weight On Admission 132.5 kg - Routine Abdominal Exam Comments: Her abdominal exam is benign with postoperative tenderness. She has no guarding or rebound. The remainder of her physical exam is benign as well. - Urinary Catheter Management 16fr Cath placed during this visit: yes Reason for continuing: Hourly intake/output Insertion date: 01/03/18 Insertion time: 17:11 Results - Labs 01/04/18 04:10 01/04/18 04:10 Laboratory Results - last 24 hr 01/03/18 01/03/18 01/03/18 12:48 14:16 16:10 WBC RBC Hgb Hct MCV MCH MCHC RDW Plt Count MPV Prelim Diff (Auto) Neut % (Auto) Lymph % (Auto) [place] % (Auto) Eos % (Auto) Baso % (Auto) Neut # (Auto) Lymph # (Auto) [place] # (Auto) Eos # (Auto) Baso # (Auto) WBC Differential Seg Neuts % (Manual) Band Neuts % (Manual) Lymphocytes % (Manual) Monocytes % (Manual) Abs Neuts (Manual) Differential Comment Platelet Estimate Platelet Morphology RBC Morphology Puncture Site Patient Temperature O2 Saturation ABG pH ABG pCO2 ABG pO2 ABG HCO3 ABG O2 Content ABG Base Excess ABG Methemoglobin Hemoglobin Carboxyhemoglobin O2 Delivery Device Critical Value Sodium Potassium Chloride Carbon Dioxide Anion Gap BUN Creatinine Estimated GFR POC Glucose 150 H 130 H Random Glucose Lactic Acid 4.1 H* Calcium Total Bilirubin AST ALT Alkaline Phosphatase Total Protein Albumin Nasal Screen MRSA (PCR) 01/03/18 01/03/18 01/03/18 17:55 19:48 22:20 WBC RBC Hgb Hct MCV MCH MCHC RDW Plt Count MPV Prelim Diff (Auto) Neut % (Auto) Lymph % (Auto) [place] % (Auto) Eos % (Auto) Baso % (Auto) Neut # (Auto) Lymph # (Auto) [place] # (Auto) Eos # (Auto) Baso # (Auto) WBC Differential Seg Neuts % (Manual) Band Neuts % (Manual) Lymphocytes % (Manual) Monocytes % (Manual) Abs Neuts (Manual) Differential Comment Platelet Estimate Platelet Morphology RBC Morphology Puncture Site Art line Patient Temperature 98.6 O2 Saturation 96 ABG pH 7.37 L ABG pCO2 41 ABG pO2 153 H ABG HCO3 23 ABG O2 Content 15.5 ABG Base Excess -1.5 ABG Methemoglobin 1.7 Hemoglobin 11.3 L Carboxyhemoglobin 1.4 O2 Delivery Device Ventilator Critical Value No Sodium Potassium Chloride Carbon Dioxide Anion Gap BUN Creatinine Estimated GFR POC Glucose 125 H Random Glucose Lactic Acid Calcium Total Bilirubin AST ALT Alkaline Phosphatase Total Protein Albumin Nasal Screen MRSA (PCR) Not detected 01/04/18 01/04/18 01/04/18 04:10 04:10 04:40 WBC 28.1 H D RBC 3.40 L Hgb 10.6 L Hct 32.2 L MCV 94.8 MCH 31.4 MCHC 33.1 RDW 13.4 Plt Count 186 MPV 6.9 L Prelim Diff (Auto) Slide review pending Neut % (Auto) 94.5 H Lymph % (Auto) 1.9 L [place] % (Auto) 3.5 Eos % (Auto) 0.0 Baso % (Auto) 0.1 Neut # (Auto) 26.6 H Lymph # (Auto) 0.5 L [place] # (Auto) 1.0 H Eos # (Auto) 0.0 Baso # (Auto) 0.0 WBC Differential Manual diff final Seg Neuts % (Manual) 88 H Band Neuts % (Manual) 9 H Lymphocytes % (Manual) 1 L Monocytes % (Manual) 2 Abs Neuts (Manual) 27.3 H Differential Comment . Platelet Estimate Normal Platelet Morphology Normal RBC Morphology Normal Puncture Site Patient Temperature O2 Saturation ABG pH ABG pCO2 ABG pO2 ABG HCO3 ABG O2 Content ABG Base Excess ABG Methemoglobin Hemoglobin Carboxyhemoglobin O2 Delivery Device Critical Value Sodium 142 Potassium 3.9 Chloride 108 H Carbon Dioxide 25.0 Anion Gap 9 BUN 42 H Creatinine 1.89 H Estimated GFR 26 L POC Glucose Random Glucose 159 H Lactic Acid 2.1 H Calcium 7.6 L D Total Bilirubin 0.7 AST 22 ALT 19 Alkaline Phosphatase 56 Total Protein 5.7 L D Albumin 2.6 L D Nasal Screen MRSA (PCR) 01/04/18 08:05 WBC RBC Hgb Hct MCV MCH MCHC RDW Plt Count MPV Prelim Diff (Auto) Neut % (Auto) Lymph % (Auto) [place] % (Auto) Eos % (Auto) Baso % (Auto) Neut # (Auto) Lymph # (Auto) [place] # (Auto) Eos # (Auto) Baso # (Auto) WBC Differential Seg Neuts % (Manual) Band Neuts % (Manual) Lymphocytes % (Manual) Monocytes % (Manual) Abs Neuts (Manual) Differential Comment Platelet Estimate Platelet Morphology RBC Morphology Puncture Site Patient Temperature O2 Saturation ABG pH ABG pCO2 ABG pO2 ABG HCO3 ABG O2 Content ABG Base Excess ABG Methemoglobin Hemoglobin Carboxyhemoglobin O2 Delivery Device Critical Value Sodium Potassium Chloride Carbon Dioxide Anion Gap BUN Creatinine Estimated GFR POC Glucose 133 H Random Glucose Lactic Acid Calcium Total Bilirubin AST ALT Alkaline Phosphatase Total Protein Albumin Nasal Screen MRSA (PCR) - Imaging Imaging: ITS Impressions Chest X-Ray 01/03/18 12:00 CONCLUSION: 1. No acute cardiopulmonary disease. Abdomen/Pelvis CT 01/03/18 12:47 CONCLUSION: 1. Persistent inflammatory change and bowel wall thickening involving several distal ileal loops in the right lower quadrant consistent with moderately severe enteritis. There has been interval increase in trace ascites in the abdomen with no fluid collections or evidence for bowel perforation. No evidence for proximal small bowel obstruction at this time. 2. Remainder of exam is unchanged. Assessment and Plan - Assessment (1) Abdominal pain Code(s): R10.9 - Unspecified abdominal pain Status: Acute (2) Pneumatosis intestinalis Code(s): K63.89 - Other specified diseases of intestine Status: Acute - Plan The patient is postop day #1 status post resection of small bowel which was ischemic. She is doing very well and having no major. The Valle catheter will be removed and the nasogastric tube will be left in place for now. I placed her on popsicles and ice chips. She understands that she should be out of bed several times a day walking in the [place].
--- NOTE | 2018-01-04 18:13 | P.PNIM ---
Subjective Interval history: Pain is controlled. No flatus yet. Physical Exam Vital signs: 01/04/18 12:00 01/04/18 14:00 Temperature 98.3 F Pulse Rate 90 89 Respiratory Rate 25 H Blood Pressure 107/54 L Pulse Oximetry 100 Narrative: GENERAL: Awake and alert. No acute distress. Cooperative. HEAD: Normocephalic. Atraumatic. EYES: Pupils equal round and reactive to light bilaterally. No scleral icterus. ENT: Moist oral mucosa. NECK: Trachea midline. CHEST: Nonlabored breathing. No respiratory distress. CARDIOVASCULAR: Regular rate and rhythm. ABDOMEN: Obese. no bowel sounds. EXTREMITIES: No cyanosis or edema. SKIN: Warm, dry, nonjaundiced. - Urinary Catheter Management 16fr Cath placed during this visit: yes Reason for continuing: Hourly intake/output Insertion date: 01/03/18 Insertion time: 17:11 Results - Labs CBC & Chem 7: 01/08/18 08:36 01/06/18 05:19 01/03/18 05:50 Blood - Peripheral Aerobic Blood Culture - Preliminary No growth in 1 day 01/03/18 05:50 Blood - Peripheral Anaerobic Blood Culture - Preliminary No growth in 1 day 01/03/18 05:50 Blood - Peripheral Aerobic Blood Culture - Preliminary No growth in 1 day 01/03/18 05:50 Blood - Peripheral Anaerobic Blood Culture - Preliminary No growth in 1 day - Imaging chest X-Ray 01/03/18 00:00 1. Nasogastric tube in place with tip below the [id number] of the radiograph. 2. Mild patchy bilateral lower lung zone opacity indicating atelectasis versus mild consolidation. Assessment and Plan - Assessment (1) Abdominal pain, RUQ Code(s): R10.11 - Right upper quadrant pain Status: Acute Plan: Patient is a pleasant 77-year-old female with history of hypertension, type 2 diabetes, and adenocarcinoma of the gallbladder. 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 Osito Kruse - cholecystectomy by Dr. Zak Padilla - Resection of the liver at the gallbladder bed was performed August 2010 - Gallbladder fossa was negative for carcinoma - Patient was recommended to have chemotherapy by oncology, but declined chemotherapy - Patient's sister from complications of poor placement for chemotherapy which makes patient anxious - Patient no longer following with oncology, last seen February 2016 Patient was in her normal state of good health until approximately 1-2 days prior to presentation. Patient developed abdominal pain. Patient's appetite diminished. Patient has had nothing solid by mouth for the last 24 hours, but she is continued to drink liquids. Patient describes the pain as severe. Patient denies nausea or vomiting. Patient denies diarrhea or constipation. Patient states that she had a small bowel movement yesterday. Patient denies bright red blood per rectum or dark tarry stools. Patient denies prior episodes of same type of abdominal pain. Abdomen/Pelvis CT 01/03/18 04:40 1. Abnormal mural thickening and inflammatory or edematous changes of several loops of small bowel in the right lower quadrant. Findings are characteristic of enteritis. Differential diagnosis includes infectious, inflammatory bowel disease or ischemic change. There is a small amount of free fluid in the pelvis. 2. Prior cholecystectomy. Small fat-containing umbilical hernia. - WBC 15.4 (01/03), 28.1 (01/04) - lactic acid 2.8, 2.7, 4.1 (01/03), then 2.1 (01/04) - no fever today - 01/03/18 Pt underwent diagnstic laparoscopy with finding of small bowel ischemia exploratory laparotomy with small bowel resection and appendectomy - continue to monitor in Surgical ICU - Case d/w Dr. Padilla (01/04/18) - IVFs - continue zosyn (01/03 - present) - flagyl (01/03 - present) - Diet: per surgery, ice chips & popsicles - dilaudid prn HTN - continue home medications Depression - continue home medications. (2) DM2 (diabetes mellitus, type 2) Code(s): E11.9 - Type 2 diabetes mellitus without complications Status: Acute (3) HTN (hypertension) Code(s): I10 - Essential (primary) hypertension Status: Acute (4) Depression Code(s): F32.9 - Major depressive disorder, single episode, unspecified Status : Acute
[2018-01-05] MEDS: Sod Chloride 0.9% Inj 1,000 ML IV.CONT SCH ×2 (05:58→13:05)
[2018-01-05] MEDS: Piperacil/Tazo 3.375 GM Premix 50 ML IV.SIG SCH ×3 (06:00→17:10)
[2018-01-05 06:31] LABS: Baso % (Auto) 0.1 % (0.0-2.0); Eos % (Auto) 0.1 % (0.0-4.0); Hematocrit 29.6 % (35.0-46.0); Hemoglobin 9.7 gm/dL (11.6-15.3); Lymph # (Auto) 0.9 th/mm3 (1.0-4.8); Lymph % (Auto) 4.3 % (9.0-44.0); Mean Corpuscular HGB Conc 32.8 % (32.0-36.0); Mean Corpuscular Hemoglobin 31.6 pg (27.0-34.0); Mean Corpuscular Volume 96.6 fL (80.0-100.0); Mean Platelet Volume 7.1 fL (7.0-11.0); Mono # (Auto) 0.6 th/mm3 (0.0-0.9); Mono % (Auto) 2.9 % (0.0-8.0); Neut # (Auto) 19.2 th/mm3 (1.8-7.7); Neut % (Auto) 92.6 % (16.0-70.0); Platelet Count 162 th/mm3 (150-450); Red Blood Count 3.07 mil/mm3 (4.00-5.30); Red Cell Distribution Width 13.6 % (11.6-17.2); White Blood Count 20.7 th/mm3 (4.0-11.0)
[2018-01-05 07:10] LABS: Alkaline Phosphatase 72 U/L (45-117); Total Protein 6.1 g/dL (6.4-8.2)
[2018-01-05 07:15] LABS: Alanine Aminotransferase 20 U/L (10-53); Albumin 2.5 g/dL (3.4-5.0); Anion Gap 8 meq/L (5-15); Aspartate Aminotransferase 33 U/L (15-37); Blood Urea Nitrogen 38 mg/dL (7-18); Calcium 8.1 mg/dL (8.5-10.1); Carbon Dioxide 26.1 meq/L (21.0-32.0); Chloride 110 meq/L (98-107); Glomerular Filtration Rate 34 mL/min (>89); Glucose,Random 94 mg/dL (74-106); Potassium 3.9 meq/L (3.5-5.1); Sodium 144 meq/L (136-145)
--- NOTE | 2018-01-05 08:44 | P.PNIM ---
Subjective Interval history: asking for ngt removal left arm swollen. Physical Exam Vital signs: Vital Signs 01/04/18 10:00 01/04/18 12:00 01/04/18 14:00 Temperature 98.3 F Pulse Rate 86 90 89 Respiratory Rate 25 H Blood Pressure 107/54 L Pulse Oximetry 100 01/04/18 16:00 01/04/18 18:00 01/04/18 20:00 Temperature 98.3 F 98.1 F Pulse Rate 88 95 H 90 Respiratory Rate 26 H 21 Blood Pressure 110/53 L 106/55 L Pulse Oximetry 100 99 01/04/18 22:00 01/05/18 00:00 01/05/18 02:00 Temperature 98.4 F Pulse Rate 87 84 83 Respiratory Rate 18 Blood Pressure 101/69 Pulse Oximetry 99 01/05/18 04:00 01/05/18 06:00 Temperature 98.0 F Pulse Rate 81 82 Respiratory Rate 20 Blood Pressure 124/60 Pulse Oximetry 100 Intake & Output 01/04/18 01/05/18 01/05/18 18:59 06:59 18:59 Intake Total 1600 / 1600 1427 / 1427 Output Total 700 / 700 50 / 50 Balance 900 / 900 1377 / 1377 Intake: IV 1550 / 1550 1250 / 1250 NS Inj 1,000 ML @ 100 mls/hr IV 1000 / 1000 1000 / 1000 .CONT .Q10H [facility] Rx#:[id number] Ofirmev Inj 1,000 mg In 100 ml 200 / 200 @ 400 mls/hr IV.SIG Q6H [facility] Rx# :[id number] Zosyn 3.375 GM Premix 50 ML @ 150 / 150 50 / 50 100 mls/hr IV.SIG Q6H [facility] Rx#: [id number] Flagyl 500 MG Inj 100 ML @ 100 200 / 200 200 / 200 mls/hr IV.SIG Q6H [facility] Rx#: [id number] Oral 50 / 50 177 / 177 Output: Urine 700 / 700 Gastric Drainage 50 / 50 Left Nare Nasogastric Tube 50 / 50 Other: # Voids 2 Date of Last Bowel Movement 01/04/18 01/05/18 # Bowel Movements 2 2 heart reg lung cta abd bs/appropriately tender ngt to suction ext left arm iv site and left arm swelling noted. - Urinary Catheter Management 16fr Cath placed during this visit: yes Reason for continuing: Hourly intake/output Insertion date: 01/03/18 Insertion time: 17:11 Results - Labs CBC & Chem 7: 01/05/18 04:07 01/05/18 04:07 Laboratory Results - last 24 hr 01/04/18 01/04/18 01/04/18 13:27 17:40 21:09 WBC RBC Hgb Hct MCV MCH MCHC RDW Plt Count MPV Neut % (Auto) Lymph % (Auto) [place] % (Auto) Eos % (Auto) Baso % (Auto) Neut # (Auto) Lymph # (Auto) [place] # (Auto) Eos # (Auto) Baso # (Auto) WBC Differential Differential Comment Sodium Potassium Chloride Carbon Dioxide Anion Gap BUN Creatinine Estimated GFR POC Glucose 147 H 125 H 111 H Random Glucose Calcium Total Bilirubin AST ALT Alkaline Phosphatase Total Protein Albumin 01/05/18 01/05/18 04:07 04:07 WBC 20.7 H RBC 3.07 L Hgb 9.7 L Hct 29.6 L MCV 96.6 MCH 31.6 MCHC 32.8 RDW 13.6 Plt Count 162 MPV 7.1 Neut % (Auto) 92.6 H Lymph % (Auto) 4.3 L [place] % (Auto) 2.9 Eos % (Auto) 0.1 Baso % (Auto) 0.1 Neut # (Auto) 19.2 H Lymph # (Auto) 0.9 L [place] # (Auto) 0.6 Eos # (Auto) 0.0 Baso # (Auto) 0.0 WBC Differential . Differential Comment Auto diff final Sodium 144 Potassium 3.9 Chloride 110 H Carbon Dioxide 26.1 Anion Gap 8 BUN 38 H Creatinine 1.50 H Estimated GFR 34 L POC Glucose Random Glucose 94 Calcium 8.1 L Total Bilirubin 0.7 AST 33 ALT 20 Alkaline Phosphatase 72 Total Protein 6.1 L Albumin 2.5 L Microbiology 01/03/18 05:50 Blood - Peripheral Aerobic Blood Culture - Preliminary No growth in 1 day 01/03/18 05:50 Blood - Peripheral Anaerobic Blood Culture - Preliminary No growth in 1 day 01/03/18 05:50 Blood - Peripheral Aerobic Blood Culture - Preliminary No growth in 1 day 01/03/18 05:50 Blood - Peripheral Anaerobic Blood Culture - Preliminary No growth in 1 day Assessment and Plan - Assessment (1) Abdominal pain, RUQ Code(s): R10.11 - Right upper quadrant pain Status: Acute Plan: Patient is a pleasant 77-year-old female with history of hypertension, type 2 diabetes, and adenocarcinoma of the gallbladder. 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 Osito Kruse - cholecystectomy by Dr. Zak Padilla - Resection of the liver at the gallbladder bed was performed August 2010 - Gallbladder fossa was negative for carcinoma - Patient was recommended to have chemotherapy by oncology, but declined chemotherapy - Patient's sister from complications of poor placement for chemotherapy which makes patient anxious - Patient no longer following with oncology, last seen February 2016 Patient was in her normal state of good health until approximately 1-2 days prior to presentation. Patient developed abdominal pain. Patient's appetite diminished. Patient has had nothing solid by mouth for the last 24 hours, but she is continued to drink liquids. Patient describes the pain as severe. Patient denies nausea or vomiting. Patient denies diarrhea or constipation. Patient states that she had a small bowel movement yesterday. Patient denies bright red blood per rectum or dark tarry stools. Patient denies prior episodes of same type of abdominal pain. Abdomen/Pelvis CT 01/03/18 04:40 1. Abnormal mural thickening and inflammatory or edematous changes of several loops of small bowel in the right lower quadrant. Findings are characteristic of enteritis. Differential diagnosis includes infectious, inflammatory bowel disease or ischemic change. There is a small amount of free fluid in the pelvis. 2. Prior cholecystectomy. Small fat-containing umbilical hernia. - 01/03/18 Pt underwent diagnstic laparoscopy with finding of small bowel ischemia exploratory laparotomy with small bowel resection and appendectomy - continue zosyn (01/03 - present) - flagyl (01/03 - ) - Diet: per surgery, ice chips & popsicles. advance as tolerated - ngt per gen surg - remove left arm iv site and elevate arm. lower ivf. - dilaudid prn HTN - continue home medications Depression - continue home medications. (2) DM2 (diabetes mellitus, type 2) Code(s): E11.9 - Type 2 diabetes mellitus without complications Status: Acute (3) HTN (hypertension) Code(s): I10 - Essential (primary) hypertension Status: Acute (4) Depression Code(s): F32.9 - Major depressive disorder, single episode, unspecified Status : Acute
[2018-01-05] MEDS: Insulin NovoLIN Regular Correctional Sugar Inj SQ SCH ×4 (10:43→21:15)
[2018-01-05] MEDS: Lisinopril 10 MG Tablet PO SCH (10:44)
[2018-01-05] MEDS: buPROPion 150 MG 12 HR Tablet PO SCH (10:44)
[2018-01-05] MEDS: hydroCHLOROthiazide 25 MG Tablet PO SCH (10:44)
[2018-01-05] MEDS: Sodium Chloride 0.9% 2 ML Flush BID IV.FLUSH SCH ×2 (10:45→21:12)
[2018-01-05] MEDS: Senna/Docusate Sodium 8.6/50 MG Tablet PO SCH ×2 (10:45→21:12)
[2018-01-05] MEDS: Venlafaxine XR 75 MG Capsule PO SCH (10:45)
--- NOTE | 2018-01-05 16:07 | ECHRPT ---
Indication: CVA/TIA CONCLUSIONS Technically difficult study with very limited echocardiographic [place] visualization. Normal left ventricular size. Wall thickness is measured at the upper limits of normal. The left ventricular systolic function is moderately reduced with an estimated ejection fraction in the range of 45-50%. Trace mitral valve regurgitation. There is trace tricuspid valve regurgitation. The estimated pulmonary arterial pressure is 44.8 mmHg. A prominent epicardial fat pad is present. BP: / HR: Rhythm: Sinus MEASUREMENTS (Male / Female) Normal Values Technical Quality:Fair 2D ECHO LV Diastolic Diameter PLAX 4.5 cm 4.2 - 5.9 / 3.9 - 5.3 cm LV Systolic Diameter PLAX 3.1 cm IVS Diastolic Thickness 1.1 cm 0.6 - 1.0 / 0.6 - 0.9 cm LVPW Diastolic Thickness 1.0 cm 0.6 - 1.0 / 0.6 - 0.9 cm LV Relative Wall Thickness 0.5 RV Internal Dim ED PLAX 3.6 cm LVOT Diameter 2.0 cm Aortic Root Diameter 2.6 cm LA Systolic Diameter LX 3.6 cm 3.0 - 4.0 / 2.7 - 3.8 cm M-MODE AV Cusp Separation MM 1.8 cm DOPPLER AV Peak Velocity 267.5 cm/s AV Peak Gradient 28.6 mmHg AV Mean Gradient 14.5 mmHg AV Velocity Time Integral 50.9 cm LVOT Peak Velocity 255.0 cm/s LVOT Peak Gradient 26.0 mmHg LVOT Velocity Time Integral 50.7 cm AV Area Cont Eq vti 3.1 cm AV Area Cont Eq pk 3.0 cm Mitral E Point Velocity 122.0 cm/s Mitral A Point Velocity 121.0 cm/s Mitral E to A Ratio 1.0 LV E' Lateral Velocity 8.2 cm/s Mitral E to LV E' Lateral Ratio 14.9 LV E' Septal Velocity 8.1 cm/s Mitral E to LV E' Septal Ratio 15.1 TR Peak Velocity 295.0 cm/s TR Peak Gradient 34.8 mmHg Right Atrial Pressure 10.0 mmHg Pulmonary Artery Systolic Pressu 44.8 mmHg Right Ventricular Systolic Press 44.8 mmHg PV Peak Velocity 149.0 cm/s PV Peak Gradient 8.9 mmHg FINDINGS LEFT VENTRICLE Normal left ventricular size. Wall thickness is measured at the upper limits of normal. The left ventricular systolic function is moderately reduced with an estimated ejection fraction in the range of 45-50%. There was limited left ventricular wall motion assessment due to poor endocardial visualization. The left ventricular apex was poorly visualized and thus apical thrombus can not be excluded. RIGHT VENTRICLE Normal right ventricular size and systolic function. LEFT ATRIUM The left atrial size is normal. RIGHT ATRIUM The right atrial size is normal. ATRIAL SEPTUM No atrial level shunt is demonstrated by color flow Doppler interrogation. AORTA The aortic root and proximal ascending aorta are not well visualized. MITRAL VALVE Trace mitral valve regurgitation. AORTIC VALVE Trileaflet aortic valve. No aortic valve stenosis or regurgitation. TRICUSPID VALVE There is trace tricuspid valve regurgitation. The estimated pulmonary arterial pressure is 44.8 mmHg. PULMONARY VALVE No pulmonary valve regurgitation or stenosis. VESSELS The inferior vena cava was not well visualized. PERICARDIUM A prominent epicardial fat pad is present. Mahesh Najera (Electronically Signed) Final Date:05 January 2018 16:06
[2018-01-06] MEDS: Piperacil/Tazo 3.375 GM Premix 50 ML IV.SIG SCH ×2 (00:09→05:31)
[2018-01-06 05:53] LABS: Baso % (Auto) 0.2 % (0.0-2.0); Eos # (Auto) 0.2 th/mm3 (0.0-0.4); Eos % (Auto) 1.8 % (0.0-4.0); Hematocrit 27.1 % (35.0-46.0); Lymph # (Auto) 1.3 th/mm3 (1.0-4.8); Mean Corpuscular HGB Conc 33.1 % (32.0-36.0); Mean Corpuscular Hemoglobin 31.7 pg (27.0-34.0); Mean Corpuscular Volume 95.8 fL (80.0-100.0); Mean Platelet Volume 6.9 fL (7.0-11.0); Mono # (Auto) 0.4 th/mm3 (0.0-0.9); Mono % (Auto) 3.5 % (0.0-8.0); Neut % (Auto) 82.5 % (16.0-70.0); Platelet Count 163 th/mm3 (150-450); Red Blood Count 2.83 mil/mm3 (4.00-5.30); Red Cell Distribution Width 13.5 % (11.6-17.2); White Blood Count 10.9 th/mm3 (4.0-11.0)
[2018-01-06 06:16] LABS: Calcium 8.4 mg/dL (8.5-10.1); Carbon Dioxide 26.3 meq/L (21.0-32.0); Potassium 3.4 meq/L (3.5-5.1)
[2018-01-06] MEDS: Insulin NovoLIN Regular Correctional Sugar Inj SQ SCH ×4 (08:19→21:17)
[2018-01-06] MEDS: hydroCHLOROthiazide 25 MG Tablet PO SCH (08:53)
[2018-01-06] MEDS: buPROPion 150 MG 12 HR Tablet PO SCH (08:53)
[2018-01-06] MEDS: Lisinopril 10 MG Tablet PO SCH (08:53)
[2018-01-06] MEDS: Venlafaxine XR 75 MG Capsule PO SCH (08:53)
[2018-01-06] MEDS: Sodium Chloride 0.9% 2 ML Flush BID IV.FLUSH SCH ×2 (08:54→21:17)
[2018-01-06] MEDS: Sod Chloride 0.9% Inj 1,000 ML IV.CONT SCH (08:57)
[2018-01-06] MEDS: Senna/Docusate Sodium 8.6/50 MG Tablet PO SCH ×2 (08:58→21:17)
[2018-01-06] MEDS ORDERED: Potassium Chloride 10 MEQ ER Capsule PO ONE (09:30)
--- NOTE | 2018-01-06 09:31 | P.PNIM ---
Subjective Interval history: pt tolerated liquids. asking for diet advancement having stools. no vomiting after ngt removal Physical Exam Vital signs: Vital Signs 01/05/18 10:00 01/05/18 12:00 01/05/18 14:00 Temperature 98 F Pulse Rate 82 80 88 Respiratory Rate 18 Blood Pressure 121/73 Pulse Oximetry 100 01/05/18 16:00 01/05/18 18:00 01/05/18 20:00 Temperature 98.2 F 99.2 F Pulse Rate 80 80 82 Respiratory Rate 20 18 Blood Pressure 105/51 L 100/55 L Pulse Oximetry 100 100 01/05/18 22:00 01/06/18 00:00 01/06/18 02:00 Temperature 97.7 F Pulse Rate 77 74 70 Respiratory Rate 21 Blood Pressure 101/51 L Pulse Oximetry 100 01/06/18 04:00 01/06/18 06:00 01/06/18 07:46 Temperature 97.7 F Pulse Rate 68 71 Respiratory Rate 19 Blood Pressure 116/56 L Pulse Oximetry 100 98 Intake & Output 01/05/18 01/06/18 01/06/18 18:59 06:59 18:59 Intake Total 780 / 780 490 / 490 50 / 50 Output Total 600 / 600 Balance 780 / 780 -110 / -110 50 / 50 Weight 131.4 kg Intake: IV 300 / 300 250 / 250 50 / 50 Zosyn 3.375 GM Premix 50 ML @ 100 / 100 50 / 50 50 / 50 100 mls/hr IV.SIG Q6H [facility] Rx#: [id number] Flagyl 500 MG Inj 100 ML @ 100 200 / 200 200 / 200 mls/hr IV.SIG Q6H [facility] Rx#: [id number] Oral 480 / 480 240 / 240 Output: Urine 600 / 600 Other: # Voids 3 2 Date of Last Bowel Movement 01/05/18 01/05/18 # Bowel Movements 2 1 heart reg lung cta abd s/bs/nd ext no edema - Urinary Catheter Management 16fr Cath placed during this visit: yes Reason for continuing: Hourly intake/output Insertion date: 01/03/18 Insertion time: 17:11 Results - Labs CBC & Chem 7: 01/06/18 05:19 01/06/18 05:19 Laboratory Results - last 24 hr 01/05/18 01/05/18 01/05/18 10:22 12:56 17:22 WBC RBC Hgb Hct MCV MCH MCHC RDW Plt Count MPV Neut % (Auto) Lymph % (Auto) [place] % (Auto) Eos % (Auto) Baso % (Auto) Neut # (Auto) Lymph # (Auto) [place] # (Auto) Eos # (Auto) Baso # (Auto) WBC Differential Differential Comment Sodium Potassium Chloride Carbon Dioxide Anion Gap BUN Creatinine Estimated GFR POC Glucose 121 H 113 H 115 H Random Glucose Calcium 01/05/18 01/06/18 01/06/18 21:00 05:19 05:19 WBC 10.9 RBC 2.83 L Hgb 9.0 L Hct 27.1 L MCV 95.8 MCH 31.7 MCHC 33.1 RDW 13.5 Plt Count 163 MPV 6.9 L Neut % (Auto) 82.5 H Lymph % (Auto) 12.0 [place] % (Auto) 3.5 Eos % (Auto) 1.8 Baso % (Auto) 0.2 Neut # (Auto) 9.0 H Lymph # (Auto) 1.3 [place] # (Auto) 0.4 Eos # (Auto) 0.2 Baso # (Auto) 0.0 WBC Differential . Differential Comment Auto diff final Sodium 144 Potassium 3.4 L Chloride 109 H Carbon Dioxide 26.3 Anion Gap 9 BUN 25 H Creatinine 1.24 H Estimated GFR 42 L POC Glucose 154 H Random Glucose 93 Calcium 8.4 L Microbiology 01/03/18 05:50 Blood - Peripheral Aerobic Blood Culture - Preliminary No growth in 2 days 01/03/18 05:50 Blood - Peripheral Anaerobic Blood Culture - Preliminary No growth in 2 days 01/03/18 05:50 Blood - Peripheral Aerobic Blood Culture - Preliminary No growth in 2 days 01/03/18 05:50 Blood - Peripheral Anaerobic Blood Culture - Preliminary No growth in 2 days Assessment and Plan - Assessment (1) Abdominal pain, RUQ Code(s): R10.11 - Right upper quadrant pain Status: Acute Plan: Patient is a pleasant 77-year-old female with history of hypertension, type 2 diabetes, and adenocarcinoma of the gallbladder. 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 Osito Kruse - cholecystectomy by Dr. Zak Padilla - Resection of the liver at the gallbladder bed was performed August 2010 - Gallbladder fossa was negative for carcinoma - Patient was recommended to have chemotherapy by oncology, but declined chemotherapy - Patient's sister from complications of poor placement for chemotherapy which makes patient anxious - Patient no longer following with oncology, last seen February 2016 Patient was in her normal state of good health until approximately 1-2 days prior to presentation. Patient developed abdominal pain. Patient's appetite diminished. Patient has had nothing solid by mouth for the last 24 hours, but she is continued to drink liquids. Patient describes the pain as severe. Patient denies nausea or vomiting. Patient denies diarrhea or constipation. Patient states that she had a small bowel movement yesterday. Patient denies bright red blood per rectum or dark tarry stools. Patient denies prior episodes of same type of abdominal pain. Abdomen/Pelvis CT 01/03/18 04:40 1. Abnormal mural thickening and inflammatory or edematous changes of several loops of small bowel in the right lower quadrant. Findings are characteristic of enteritis. Differential diagnosis includes infectious, inflammatory bowel disease or ischemic change. There is a small amount of free fluid in the pelvis. 2. Prior cholecystectomy. Small fat-containing umbilical hernia. - 01/03/18 Pt underwent diagnstic laparoscopy with finding of small bowel ischemia exploratory laparotomy with small bowel resection and appendectomy - continue zosyn (01/03 - present) - flagyl (01/03 - present) - Diet: per surgery, - ngt removed 01/05 - if diet advanced then stop ivf - transfer to med/surg -prn pain control HTN - continue home medications Depression - continue home medications. (2) DM2 (diabetes mellitus, type 2) Code(s): E11.9 - Type 2 diabetes mellitus without complications Status: Acute (3) HTN (hypertension) Code(s): I10 - Essential (primary) hypertension Status: Acute (4) Depression Code(s): F32.9 - Major depressive disorder, single episode, unspecified Status : Acute
--- NOTE | 2018-01-06 10:41 | P.PNGS ---
Subjective Interval history: Multiple dark liquid bowel movts. Tolerating clears without nausea. Sitting in chair and has ambulated in her room. Physical Exam Vital signs: Vital Signs 01/05/18 12:00 01/05/18 14:00 01/05/18 16:00 Temperature 98 F 98.2 F Pulse Rate 80 88 80 Respiratory Rate 18 20 Blood Pressure 121/73 105/51 L Pulse Oximetry 100 100 01/05/18 18:00 01/05/18 20:00 01/05/18 22:00 Temperature 99.2 F Pulse Rate 80 82 77 Respiratory Rate 18 Blood Pressure 100/55 L Pulse Oximetry 100 01/06/18 00:00 01/06/18 02:00 01/06/18 04:00 Temperature 97.7 F 97.7 F Pulse Rate 74 70 68 Respiratory Rate 21 19 Blood Pressure 101/51 L 116/56 L Pulse Oximetry 100 100 01/06/18 06:00 01/06/18 07:46 Temperature Pulse Rate 71 Respiratory Rate Blood Pressure Pulse Oximetry 98 Intake & Output 01/05/18 01/06/18 01/06/18 18:59 06:59 18:59 Intake Total 780 / 780 490 / 490 50 / 50 Output Total 600 / 600 Balance 780 / 780 -110 / -110 50 / 50 Weight 131.4 kg Intake: IV 300 / 300 250 / 250 50 / 50 Zosyn 3.375 GM Premix 50 ML @ 100 / 100 50 / 50 50 / 50 100 mls/hr IV.SIG Q6H [facility] Rx#: [id number] Flagyl 500 MG Inj 100 ML @ 100 200 / 200 200 / 200 mls/hr IV.SIG Q6H [facility] Rx#: [id number] Oral 480 / 480 240 / 240 Output: Urine 600 / 600 Other: # Voids 3 2 Date of Last Bowel Movement 01/05/18 01/05/18 # Bowel Movements 2 1 Narrative: NAD, comfortable Abd: soft, JACQUELINE dressing in place - Urinary Catheter Management 16fr Cath placed during this visit: yes Reason for continuing: Hourly intake/output Insertion date: 01/03/18 Insertion time: 17:11 Results - Labs 01/06/18 05:19 01/06/18 05:19 Laboratory Results - last 24 hr 01/05/18 01/05/18 01/05/18 12:56 17:22 21:00 WBC RBC Hgb Hct MCV MCH MCHC RDW Plt Count MPV Neut % (Auto) Lymph % (Auto) [place] % (Auto) Eos % (Auto) Baso % (Auto) Neut # (Auto) Lymph # (Auto) [place] # (Auto) Eos # (Auto) Baso # (Auto) WBC Differential Differential Comment Sodium Potassium Chloride Carbon Dioxide Anion Gap BUN Creatinine Estimated GFR POC Glucose 113 H 115 H 154 H Random Glucose Calcium 01/06/18 01/06/18 05:19 05:19 WBC 10.9 RBC 2.83 L Hgb 9.0 L Hct 27.1 L MCV 95.8 MCH 31.7 MCHC 33.1 RDW 13.5 Plt Count 163 MPV 6.9 L Neut % (Auto) 82.5 H Lymph % (Auto) 12.0 [place] % (Auto) 3.5 Eos % (Auto) 1.8 Baso % (Auto) 0.2 Neut # (Auto) 9.0 H Lymph # (Auto) 1.3 [place] # (Auto) 0.4 Eos # (Auto) 0.2 Baso # (Auto) 0.0 WBC Differential . Differential Comment Auto diff final Sodium 144 Potassium 3.4 L Chloride 109 H Carbon Dioxide 26.3 Anion Gap 9 BUN 25 H Creatinine 1.24 H Estimated GFR 42 L POC Glucose Random Glucose 93 Calcium 8.4 L - Imaging Imaging: ITS Impressions Chest X-Ray 01/03/18 12:00 CONCLUSION: 1. No acute cardiopulmonary disease. Abdomen/Pelvis CT 01/03/18 12:47 CONCLUSION: 1. Persistent inflammatory change and bowel wall thickening involving several distal ileal loops in the right lower quadrant consistent with moderately severe enteritis. There has been interval increase in trace ascites in the abdomen with no fluid collections or evidence for bowel perforation. No evidence for proximal small bowel obstruction at this time. 2. Remainder of exam is unchanged. Assessment and Plan - Assessment (1) Abdominal pain Code(s): R10.9 - Unspecified abdominal pain Status: Acute (2) Pneumatosis intestinalis Code(s): K63.89 - Other specified diseases of intestine Status: Acute - Plan POD 3 s/p ex lap, small bowel resection. Tolerating clears. Multiple dark liquid BMs and H/H trending down, possible oozing at anastamosis. Soft diabetic diet. Stop antibiotics- WBC normalized. PO pain meds. Will not start heparin due to h/h trending down, possible oozing at anastamosis.
[2018-01-06] MEDS ORDERED: Heparin - SQ 10,000 UNITS/ML Vial SQ SCH (14:00)
[2018-01-07] MEDS: Sod Chloride 0.9% Inj 1,000 ML IV.CONT SCH (04:00)
[2018-01-07 06:01] LABS: Hematocrit 24.4 % (35.0-46.0); Hemoglobin 8.5 gm/dL (11.6-15.3); Mean Corpuscular HGB Conc 35.1 % (32.0-36.0); Mean Corpuscular Hemoglobin 32.6 pg (27.0-34.0); Mean Corpuscular Volume 92.9 fL (80.0-100.0); Mean Platelet Volume 6.9 fL (7.0-11.0); Platelet Count 166 th/mm3 (150-450); Red Blood Count 2.62 mil/mm3 (4.00-5.30); Red Cell Distribution Width 13.2 % (11.6-17.2); White Blood Count 5.5 th/mm3 (4.0-11.0)
--- NOTE | 2018-01-07 08:40 | P.PNIM ---
Subjective Interval history: pt tolerating food. mild right side abdomen pain. Physical Exam Vital signs: Vital Signs 01/06/18 12:00 01/06/18 16:00 01/06/18 20:00 Temperature 98.6 F 98.6 F 98.4 F Pulse Rate 68 72 74 Respiratory Rate 20 22 20 Blood Pressure 109/55 L 138/56 L 127/58 L Pulse Oximetry 100 100 100 01/07/18 00:00 01/07/18 04:00 Temperature 98.6 F 97.9 F Pulse Rate 70 71 Respiratory Rate 22 18 Blood Pressure 114/56 L 120/57 L Pulse Oximetry 97 99 Intake & Output 01/06/18 01/07/18 01/07/18 18:59 06:59 18:59 Intake Total 770 / 770 360 / 360 Output Total 100 / 100 Balance 670 / 670 360 / 360 Weight 131.6 kg Intake: IV 50 / 50 Zosyn 3.375 GM Premix 50 ML @ 50 / 50 100 mls/hr IV.SIG Q6H [facility] Rx#: [id number] Oral 720 / 720 360 / 360 Output: Urine 100 / 100 Other: # Voids 7 1 Date of Last Bowel Movement 01/06/18 01/07/18 # Bowel Movements 7 1 heart reg lung cta abd s/nt/bs ext no edema - Urinary Catheter Management 16fr Cath placed during this visit: yes Reason for continuing: Hourly intake/output Insertion date: 01/03/18 Insertion time: 17:11 Results - Labs CBC & Chem 7: 01/07/18 05:36 01/06/18 05:19 Laboratory Results - last 24 hr 01/06/18 01/06/18 01/06/18 11:54 15:46 21:00 WBC RBC Hgb Hct MCV MCH MCHC RDW Plt Count MPV POC Glucose 142 H 106 131 H 01/07/18 05:36 WBC 5.5 RBC 2.62 L Hgb 8.5 L Hct 24.4 L MCV 92.9 MCH 32.6 MCHC 35.1 RDW 13.2 Plt Count 166 MPV 6.9 L POC Glucose Microbiology 01/03/18 05:50 Blood - Peripheral Aerobic Blood Culture - Preliminary No growth in 3 days 01/03/18 05:50 Blood - Peripheral Anaerobic Blood Culture - Preliminary No growth in 3 days 01/03/18 05:50 Blood - Peripheral Aerobic Blood Culture - Preliminary No growth in 3 days 01/03/18 05:50 Blood - Peripheral Anaerobic Blood Culture - Preliminary No growth in 3 days Assessment and Plan - Assessment (1) Abdominal pain, RUQ Code(s): R10.11 - Right upper quadrant pain Status: Acute Plan: Patient is a pleasant 77-year-old female with history of hypertension, type 2 diabetes, and adenocarcinoma of the gallbladder. 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 Osito Kruse - cholecystectomy by Dr. Zak Padilla - Resection of the liver at the gallbladder bed was performed August 2010 - Gallbladder fossa was negative for carcinoma - Patient was recommended to have chemotherapy by oncology, but declined chemotherapy - Patient's sister from complications of poor placement for chemotherapy which makes patient anxious - Patient no longer following with oncology, last seen February 2016 Patient was in her normal state of good health until approximately 1-2 days prior to presentation. Patient developed abdominal pain. Patient's appetite diminished. Patient has had nothing solid by mouth for the last 24 hours, but she is continued to drink liquids. Patient describes the pain as severe. Patient denies nausea or vomiting. Patient denies diarrhea or constipation. Patient states that she had a small bowel movement yesterday. Patient denies bright red blood per rectum or dark tarry stools. Patient denies prior episodes of same type of abdominal pain. Abdomen/Pelvis CT 01/03/18 04:40 1. Abnormal mural thickening and inflammatory or edematous changes of several loops of small bowel in the right lower quadrant. Findings are characteristic of enteritis. Differential diagnosis includes infectious, inflammatory bowel disease or ischemic change. There is a small amount of free fluid in the pelvis. 2. Prior cholecystectomy. Small fat-containing umbilical hernia. - 01/03/18 Pt underwent diagnstic laparoscopy with finding of small bowel ischemia exploratory laparotomy with small bowel resection and appendectomy - continue zosyn (01/03 - 01/06 - flagyl (01/03 -01/06 - Diet: per surgery, - ngt removed 01/05 - transfer to med/surg -prn pain control - note h/h trending down and gen surg concerns for oozing at anastamosis site. HTN - continue home medications Depression - continue home medications. (2) DM2 (diabetes mellitus, type 2) Code(s): E11.9 - Type 2 diabetes mellitus without complications Status: Acute (3) HTN (hypertension) Code(s): I10 - Essential (primary) hypertension Status: Acute (4) Depression Code(s): F32.9 - Major depressive disorder, single episode, unspecified Status : Acute
[2018-01-07] MEDS: Insulin NovoLIN Regular Correctional Sugar Inj SQ SCH ×4 (09:04→20:53)
[2018-01-07] MEDS: buPROPion 150 MG 12 HR Tablet PO SCH (09:28)
[2018-01-07] MEDS: hydroCHLOROthiazide 25 MG Tablet PO SCH (09:28)
[2018-01-07] MEDS: Senna/Docusate Sodium 8.6/50 MG Tablet PO SCH ×2 (09:29→20:54)
[2018-01-07] MEDS: Venlafaxine XR 75 MG Capsule PO SCH (09:29)
[2018-01-07] MEDS: Lisinopril 10 MG Tablet PO SCH (09:29)
[2018-01-07] MEDS: Sodium Chloride 0.9% 2 ML Flush BID IV.FLUSH SCH ×2 (09:30→20:54)
[2018-01-08] MEDS: Insulin NovoLIN Regular Correctional Sugar Inj SQ SCH ×4 (08:35→20:29)
[2018-01-08] MEDS: hydroCHLOROthiazide 25 MG Tablet PO SCH (08:43)
[2018-01-08] MEDS: Senna/Docusate Sodium 8.6/50 MG Tablet PO SCH ×2 (08:43→20:22)
[2018-01-08] MEDS: Venlafaxine XR 75 MG Capsule PO SCH (08:43)
[2018-01-08] MEDS: Sodium Chloride 0.9% 2 ML Flush BID IV.FLUSH SCH ×2 (08:51→20:22)
[2018-01-08] MEDS: buPROPion 150 MG 12 HR Tablet PO SCH (08:51)
[2018-01-08] MEDS: Lisinopril 10 MG Tablet PO SCH (08:51)
[2018-01-08 09:03] LABS: Baso % (Auto) 0.5 % (0.0-2.0); Eos # (Auto) 0.1 th/mm3 (0.0-0.4); Eos % (Auto) 2.9 % (0.0-4.0); Hematocrit 28.4 % (35.0-46.0); Hemoglobin 9.6 gm/dL (11.6-15.3); Lymph # (Auto) 1.1 th/mm3 (1.0-4.8); Lymph % (Auto) 21.1 % (9.0-44.0); Mean Corpuscular HGB Conc 33.7 % (32.0-36.0); Mean Corpuscular Hemoglobin 31.9 pg (27.0-34.0); Mean Corpuscular Volume 94.7 fL (80.0-100.0); Mono # (Auto) 0.5 th/mm3 (0.0-0.9); Mono % (Auto) 9.7 % (0.0-8.0); Neut # (Auto) 3.3 th/mm3 (1.8-7.7); Neut % (Auto) 65.8 % (16.0-70.0); Platelet Count 205 th/mm3 (150-450); Red Cell Distribution Width 13.2 % (11.6-17.2)
--- NOTE | 2018-01-08 10:16 | P.PNIM ---
Subjective Interval history: pt felt weaker today. Physical Exam Vital signs: Vital Signs 01/07/18 11:00 01/07/18 12:00 01/07/18 13:00 Temperature 98.7 F Pulse Rate 76 74 72 Respiratory Rate 80 H 31 H 27 H Blood Pressure 132/62 Pulse Oximetry 95 94 L 01/07/18 13:28 01/07/18 14:00 01/07/18 15:00 Temperature Pulse Rate 77 73 76 Respiratory Rate 29 H 27 H 31 H Blood Pressure 132/62 Pulse Oximetry 90 L 100 01/07/18 16:00 01/07/18 16:54 01/07/18 17:00 Temperature 98.5 F Pulse Rate 85 74 70 Respiratory Rate 26 H 26 H 24 Blood Pressure 138/65 138/65 Pulse Oximetry 96 01/07/18 18:00 01/07/18 19:00 01/07/18 19:42 Temperature Pulse Rate 72 79 72 Respiratory Rate 23 35 H 31 H Blood Pressure 133/59 L Pulse Oximetry 01/07/18 20:00 01/07/18 21:00 01/07/18 22:09 Temperature 98 F Pulse Rate 74 70 91 H Respiratory Rate 38 H 32 H Blood Pressure 133/59 L Pulse Oximetry 95 01/07/18 23:00 01/07/18 23:50 01/08/18 00:00 Temperature 98.6 F Pulse Rate 75 74 70 Respiratory Rate 33 H 31 H 33 H Blood Pressure 139/61 134/61 Pulse Oximetry 99 01/08/18 01:00 01/08/18 02:00 01/08/18 03:00 Temperature Pulse Rate 69 72 73 Respiratory Rate 21 20 25 H Blood Pressure Pulse Oximetry 01/08/18 04:00 01/08/18 04:28 01/08/18 05:00 Temperature 98.6 F Pulse Rate 69 70 68 Respiratory Rate 21 26 H 20 Blood Pressure 155/67 H 155/67 H Pulse Oximetry 96 01/08/18 06:00 01/08/18 07:00 01/08/18 08:00 Temperature 98.7 F Pulse Rate 83 69 68 Respiratory Rate 21 18 20 Blood Pressure Pulse Oximetry 01/08/18 08:12 Temperature 98.7 F Pulse Rate 68 Respiratory Rate 20 Blood Pressure 146/66 H Pulse Oximetry 98 Intake & Output 01/07/18 01/08/18 01/08/18 18:59 06:59 18:59 Intake Total 19390 480 / 480 Balance 1939 480 / 480 Weight 130.1 kg Intake: IV 500 / 500 NS Inj 1,000 ML @ 50 mls/hr IV. 500 / 500 CONT .Q20H [facility] Rx#:[id number] Oral 1440 / 1440 480 / 480 Other: # Voids 3 2 Date of Last Bowel Movement 01/07/18 01/08/18 01/08/18 # Bowel Movements 2 1 # Incontinent Bowel Movements 1 pale heart reg lung cta abd s/nt/bs ext no edema - Urinary Catheter Management 16fr Cath placed during this visit: yes Reason for continuing: Hourly intake/output Insertion date: 01/03/18 Insertion time: 17:11 Results - Labs CBC & Chem 7: 01/08/18 08:36 01/06/18 05:19 Laboratory Results - last 24 hr 01/07/18 01/07/18 01/07/18 11:08 16:53 20:28 WBC RBC Hgb Hct MCV MCH MCHC RDW Plt Count MPV Neut % (Auto) Lymph % (Auto) Curry % (Auto) Eos % (Auto) Baso % (Auto) Neut # (Auto) Lymph # (Auto) Curry # (Auto) Eos # (Auto) Baso # (Auto) WBC Differential Differential Comment POC Glucose 114 H 118 H 131 H 01/08/18 01/08/18 08:11 08:36 WBC 5.0 RBC 3.00 L Hgb 9.6 L Hct 28.4 L MCV 94.7 MCH 31.9 MCHC 33.7 RDW 13.2 Plt Count 205 MPV 7.0 Neut % (Auto) 65.8 Lymph % (Auto) 21.1 Curry % (Auto) 9.7 H Eos % (Auto) 2.9 Baso % (Auto) 0.5 Neut # (Auto) 3.3 Lymph # (Auto) 1.1 Curry # (Auto) 0.5 Eos # (Auto) 0.1 Baso # (Auto) 0.0 WBC Differential . Differential Comment Auto diff final POC Glucose 104 Microbiology 01/03/18 05:50 Blood - Peripheral Aerobic Blood Culture - Preliminary No growth in 4 days 01/03/18 05:50 Blood - Peripheral Anaerobic Blood Culture - Preliminary No growth in 4 days 01/03/18 05:50 Blood - Peripheral Aerobic Blood Culture - Preliminary No growth in 4 days 01/03/18 05:50 Blood - Peripheral Anaerobic Blood Culture - Preliminary No growth in 4 days Assessment and Plan - Assessment (1) Abdominal pain, RUQ Code(s): R10.11 - Right upper quadrant pain Status: Acute Plan: Patient is a pleasant 77-year-old female with history of hypertension, type 2 diabetes, and adenocarcinoma of the gallbladder. 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 Osito Kruse - cholecystectomy by Dr. Zak Padilla - Resection of the liver at the gallbladder bed was performed August 2010 - Gallbladder fossa was negative for carcinoma - Patient was recommended to have chemotherapy by oncology, but declined chemotherapy - Patient's sister from complications of poor placement for chemotherapy which makes patient anxious - Patient no longer following with oncology, last seen February 2016 Patient was in her normal state of good health until approximately 1-2 days prior to presentation. Patient developed abdominal pain. Patient's appetite diminished. Patient has had nothing solid by mouth for the last 24 hours, but she is continued to drink liquids. Patient describes the pain as severe. Patient denies nausea or vomiting. Patient denies diarrhea or constipation. Patient states that she had a small bowel movement yesterday. Patient denies bright red blood per rectum or dark tarry stools. Patient denies prior episodes of same type of abdominal pain. Abdomen/Pelvis CT 01/03/18 04:40 1. Abnormal mural thickening and inflammatory or edematous changes of several loops of small bowel in the right lower quadrant. Findings are characteristic of enteritis. Differential diagnosis includes infectious, inflammatory bowel disease or ischemic change. There is a small amount of free fluid in the pelvis. 2. Prior cholecystectomy. Small fat-containing umbilical hernia. - 01/03/18 Pt underwent diagnstic laparoscopy with finding of small bowel ischemia exploratory laparotomy with small bowel resection and appendectomy - continue zosyn (01/03 - 01/06 - flagyl (01/03 -01/06 - Diet: per surgery, - ngt removed 01/05 - transfer to med/surg -prn pain control - note h/h trending down and gen surg concerns for oozing at anastamosis site. her hgb today better 9.6 will plan for dc when ok with gen surg. HTN - continue home medications Depression - continue home medications. (2) DM2 (diabetes mellitus, type 2) Code(s): E11.9 - Type 2 diabetes mellitus without complications Status: Acute (3) HTN (hypertension) Code(s): I10 - Essential (primary) hypertension Status: Acute (4) Depression Code(s): F32.9 - Major depressive disorder, single episode, unspecified Status : Acute
[2018-01-08 23:37] VITALS: RESP 18
[2018-01-09] MEDS: Senna/Docusate Sodium 8.6/50 MG Tablet PO SCH (09:55)
[2018-01-09] MEDS: buPROPion 150 MG 12 HR Tablet PO SCH (09:56)
[2018-01-09] MEDS: hydroCHLOROthiazide 25 MG Tablet PO SCH (09:56)
[2018-01-09] MEDS: Lisinopril 10 MG Tablet PO SCH (09:57)
[2018-01-09] MEDS: Venlafaxine XR 75 MG Capsule PO SCH (09:57)
[2018-01-09] MEDS: Insulin NovoLIN Regular Correctional Sugar Inj SQ SCH (09:57)
[2018-01-09] MEDS: Sodium Chloride 0.9% 2 ML Flush BID IV.FLUSH SCH (09:59)
--- NOTE | 2018-01-09 10:13 | P.DS ---
Date of admission: 01/03/18 08:58 Primary care physician: Zackery Edwards MD, PhD Brief History from admission: Patient is a pleasant 77-year-old female with history of hypertension, type 2 diabetes, and adenocarcinoma of the gallbladder. Gallbladder was resected by Dr. Zak Padilla in 2010. Patient was in her normal state of good health until approximately 1-2 days prior to presentation. Patient developed abdominal pain. Patient's appetite diminished. Patient has had nothing solid by mouth for the last 24 hours, but she is continued to drink liquids. Patient describes the pain as severe. Patient denies nausea or vomiting. Patient denies diarrhea or constipation. Patient states that she had a small bowel movement yesterday. Patient denies bright red blood per rectum or dark tarry stools. Patient denies prior episodes of same type of abdominal pain. 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 Osito Kruse - cholecystectomy by Dr. Zak Padilla -Resection of the liver at the gallbladder bed was performed August 2010 -Gallbladder fossa was negative for carcinoma -Patient was recommended to have chemotherapy by oncology, but declined chemotherapy -Patient's sister from complications of poor placement for chemotherapy which makes patient anxious -Patient no longer following with oncology, last seen February 2016 5) hyperlipidemia 6) morbid obesity 7) depression 8) PAD, mild 9) aortic atherosclerosis 10) history of right breast subcutaneous lesion 11) GERD PSH: 1) colonoscopy 05/2010 2) cholecystectomy 3) resection of liver at the gallbladder bed, August 2010. Negative for carcinoma 4) liver biopsy 5) EGD 6) dilation and curettage 7) ERCP with sphincterectomy, stent insertion (?) 8) tonsillectomy and adenoidectomy 194 9) Bariatric Surgery FHX: Non-contributory SHX: , retired -Former smoker. Patient quit over 15 years ago. However, prior to that she smoked on and off since teenager. -No alcohol use -No illicit street drugs Allergies: No known drug allergies MED: 1) artificial tears 2) aspirin 81 mg p.o. daily 3) Lipitor 40 mg p.o. every afternoon 4) bupropion XL 150 mg p.o. daily ---> still taking? 5) Flonase 1 spray in each nostril twice a day 6) ibuprofen as needed 7) lisinopril/hydrochlorothiazide 10/12.5 mg 1 tablet daily 8 multivitamin 1 tablet daily 9) naproxen 250 mg as needed 10) Effexor ER 75 mg 1 tablet daily --> still taking ? 11) vitamin D 1000 units 2 tablets daily DS: Diagnosis - Discharge Diagnosis (1) Abdominal pain, RUQ Status: Acute (2) DM2 (diabetes mellitus, type 2) Status: Acute (3) HTN (hypertension) Status: Acute (4) Depression Status: Acute DS: Summary Hospital Course: Assessment and Plan - Assessment (1) Abdominal pain, RUQ Code(s): R10.11 - Right upper quadrant pain Status: Acute Plan: Patient is a pleasant 77-year-old female with history of hypertension, type 2 diabetes, and adenocarcinoma of the gallbladder. 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 Osito Kruse - cholecystectomy by Dr. Zak Padilla - Resection of the liver at the gallbladder bed was performed August 2010 - Gallbladder fossa was negative for carcinoma - Patient was recommended to have chemotherapy by oncology, but declined chemotherapy - Patient's sister from complications of poor placement for chemotherapy which makes patient anxious - Patient no longer following with oncology, last seen February 2016 Patient was in her normal state of good health until approximately 1-2 days prior to presentation. Patient developed abdominal pain. Patient's appetite diminished. Patient has had nothing solid by mouth for the last 24 hours, but she is continued to drink liquids. Patient describes the pain as severe. Patient denies nausea or vomiting. Patient denies diarrhea or constipation. Patient states that she had a small bowel movement yesterday. Patient denies bright red blood per rectum or dark tarry stools. Patient denies prior episodes of same type of abdominal pain. Abdomen/Pelvis CT 01/03/18 04:40 1. Abnormal mural thickening and inflammatory or edematous changes of several loops of small bowel in the right lower quadrant. Findings are characteristic of enteritis. Differential diagnosis includes infectious, inflammatory bowel disease or ischemic change. There is a small amount of free fluid in the pelvis. 2. Prior cholecystectomy. Small fat-containing umbilical hernia. - 01/03/18 Pt underwent diagnstic laparoscopy with finding of small bowel ischemia exploratory laparotomy with small bowel resection and appendectomy - zosyn (01/03 - 01/06 - flagyl (01/03 -01/06 - Diet: per surgery, - ngt removed 01/05 - transferred to med/surg -prn pain control - note h/h trending down and gen surg concerns for oozing at anastamosis site. her hgb now better 9.6 discussed with gen surg. ok to dc home today. HTN - continue home medications Depression - continue home medications. (2) DM2 (diabetes mellitus, type 2) Code(s): E11.9 - Type 2 diabetes mellitus without complications Status: Acute (3) HTN (hypertension) Code(s): I10 - Essential (primary) hypertension Status: Acute (4) Depression Code(s): F32.9 - Major depressive disorder, single episode, unspecified Status : Acute - Time Spent with Patient Total time spent providing and/or coordinating discharge services: Greater than 30 minutes - Quality: VTE Deep Vein Thrombosis/Pulmonary Embolism Present on Admission: No Exam Vital signs: Vital Signs 01/08/18 11:00 01/08/18 11:47 01/08/18 12:00 Temperature 98.4 F Pulse Rate 70 69 69 Respiratory Rate 30 H 26 H 28 H Blood Pressure 149/62 H 149/62 H Pulse Oximetry 98 01/08/18 14:35 01/08/18 15:00 01/08/18 16:00 Temperature Pulse Rate 81 71 73 Respiratory Rate 26 H 28 H Blood Pressure Pulse Oximetry 01/08/18 16:34 01/08/18 17:00 01/08/18 20:00 Temperature 99.1 F 98.8 F Pulse Rate 70 68 75 Respiratory Rate 44 H 26 H 22 Blood Pressure 132/60 107/62 Pulse Oximetry 01/08/18 21:00 01/09/18 00:00 01/09/18 04:00 Temperature 98.2 F 98.3 F 98 F Pulse Rate 84 71 66 Respiratory Rate 18 18 Blood Pressure 150/65 H 144/63 H 127/63 Pulse Oximetry 97 95 96 01/09/18 08:00 Temperature 98.0 F Pulse Rate 75 Respiratory Rate 18 Blood Pressure 149/72 H Pulse Oximetry 95 Intake & Output 10/01/09/18 01/09/18 18:59 06:59 18:59 Intake Total 120 / 120 Balance 120 / 120 Weight 130.2 kg 130.2 kg Intake: Oral 120 / 120 Other: # Voids 3 Date of Last Bowel Movement 01/08/18 01/02/18 # Bowel Movements 1 Results Procedures completed during hospitalization: exp lap bvowel resection and appe Completed studies during hospitalization: Pending at discharge 01/03/18 08:33 Surgical [PTH] Routine Labs on day of discharge: Labs from last 24 hours 01/09/18 01/08/18 01/08/18 05:31 22:01 20:26 POC Glucose 113 H 123 H 129 H 01/08/18 01/08/18 16:36 11:46 POC Glucose 108 118 H - Impressions ITS Impressions Chest X-Ray 01/03/18 12:00 CONCLUSION: 1. No acute cardiopulmonary disease. Abdomen/Pelvis CT 01/03/18 12:47 CONCLUSION: 1. Persistent inflammatory change and bowel wall thickening involving several distal ileal loops in the right lower quadrant consistent with moderately severe enteritis. There has been interval increase in trace ascites in the abdomen with no fluid collections or evidence for bowel perforation. No evidence for proximal small bowel obstruction at this time. 2. Remainder of exam is unchanged. Discharge Plan - Discharge Disposition Patient Disposition: 01 Discharge Home - Discharge Condition Condition: Stable - Discharge Order Discharge Orders: Discharge Order (Routine); Ordered 01/09/18 Ordered By: Ike Morejon - Discharge Details Anticipated Discharge Date: 01/09/18 - Physicians Team Primary Care Provider: Zackery Edwards Attending Provider: Jeremie Seth Other Providers: Gianluca Rodriges MD ; [facility]
[2018-01-09 13:07] VITALS: BP 142/77; PULSE 74; TEMP 98.6; O2SAT 94
--- NOTE | 2018-01-09 16:06 | P.DCO ---
- Physical Therapy Order: Evaluate and treat - Home Health Nursing Order: Medical education, Signs/symptoms of disease process, Medication education-adverse effect, Wound care and dressing changes, Nursing assessment with vital signs - Case Management Consult No - Certification I have seen patient Mayra Gregorio on 01/09/18. My clinical findings support the need for the requested home health care services because: Need for psychosocial assistance I certify that my clinical findings support that this patient is homebound because: Need for psychosocial assistance
== END 2018-01-09 17:26 | disposition home or self-care (01) ==
LOC: NEPE 04:29 → NEDA 08:58 → N06 10:58 → N03 18:57 → N06 01-08 21:00
PROVIDERS: ADMIT Hospitalist; ATTEND Hospitalist